=== PATIENT | female | born 1960 | race Caucasian/White ===

== ENCOUNTER → 2018-05-01 09:43 | Outpatient (CLI) | payer OTHER, SELFPAY ==
--- NOTE | 2018-05-01 09:55 | MM_ITS ---
MM Dig screening mamm BI w/CAD CAD Screening COMPARISON: Digital mammograms with CAD 10/13/2016 INDICATION: There is no personal or family history of breast cancer TECHNIQUE: Standard CC and MLO images were obtained. R2 CAD reviewed. FINDINGS: The breasts are composed primarily of fat with minimal scattered fibro glandular densities in each breast. There is no suspicious lesion in either breast and there are no suspicious microcalcifications. IMPRESSION: Fatty type breast parenchyma no suspicious lesion seen BI-RADS Category: 1 Negative RECOMMENDED FOLLOW-UP: 1YR - 1 YEAR FOLLOW-UP (A letter has been sent to the patient regarding results of the study.)
== END ==
PROVIDERS: Family Provider Internal Medicine; PCP Family Medicine; Visit Provider Internal Medicine
DX: Z12.31 Encounter for screening mammogram for malignant neoplasm of breast (principal)
CPT/HCPCS: 77067

== ENCOUNTER 2018-05-14 12:50 | Observation (INO) ==
--- NOTE | 2018-05-14 12:52 | Emergency Department Note ---
ED Disposition Clinical Impression: Chest pain Qualifiers: Chest pain type: precordial pain Qualified Code(s): R07.2 - Precordial pain Disposition: Still a Patient Condition on Discharge: Good - Critical Care Critical Care Time: No Attestation: On , the high probability of a clinically significant, sudden or life threatening deterioration of the following system(s) required my full and direct attention, intervention and personal management. The time I documented below is in addition to time spent performing reported procedures but includes the following listed in this critical care notation. Medical Decision Making - Jayy Inquiry Pt receiving controlled substance: No Vital Signs: 05/14/18 12:51 05/14/18 12:58 05/14/18 13:50 Temperature 98.0 F Temperature Source Oral Pulse Rate [Right Brachial] 89 88 84 Respiratory Rate 18 Blood Pressure [Right Arm] 158/68 158/68 146/74 Blood Pressure Mean [Right Arm] 98 98 98 Blood Pressure Source [Right Arm] Automatic Cuff Automatic Cuff Automatic Cuff Blood Pressure Position [Right Arm] Sitting Sitting Sitting 02 Sat by Pulse Oximetry 97 95 98 Oxygen Delivery Method Room Air 05/14/18 14:30 Temperature Temperature Source Pulse Rate [Right Brachial] 88 Respiratory Rate Blood Pressure [Right Arm] 147/79 Blood Pressure Mean [Right Arm] 101 Blood Pressure Source [Right Arm] Automatic Cuff Blood Pressure Position [Right Arm] Sitting 02 Sat by Pulse Oximetry 98 Oxygen Delivery Method - Lab Data Lab Results 05/14/18 12:55: WBC 9.3, RBC 4.64, Hgb 14.1, Hct 41.2, MCV 88.6, MCH 30.4, MCHC 34.3, RDW 13.1, Plt Count 200, MPV 8.3, Neut % (Auto) 60.0, Lymph % (Auto) 29.5 , [place] % (Auto) 7.6, Eos % (Auto) 2.3, Baso % (Auto) 0.5, Neut # (Auto) 5.6, Lymph # (Auto) 2.8, [place] # (Auto) 0.7, Eos # (Auto) 0.2, Baso # (Auto) 0.1 05/14/18 12:55: Sodium 140, Potassium 4.0, Chloride 104, Carbon Dioxide 29, Anion Gap 11.0, BUN 15, Creatinine 1.18 H, Estimated Creat Clear 50, Estimated GFR 48 L, Est GFR ( Amer) 58 L, Glucose 95, Calcium 9.3, Troponin I < 0.02 Result diagrams: 05/14/18 12:55 05/14/18 12:55 Orders (Tests/Meds): ED MEDICATIONS Generic Name Dose Route Start Last Admin Trade Name Freq PRN Reason Stop Dose Admin Aspirin 325 mg 05/15/18 09:00 Aspirin Ec 325mg Tablet PO 06/14/18 08:59 DAILY AMBER Discontinued Medications Generic Name Dose Route Start Last Admin Trade Name Freq PRN Reason Stop Dose Admin Aspirin 324 mg 05/14/18 12:59 05/14/18 13:01 Aspirin 81mg Chewable Tablet PO 05/14/18 13:00 324 mg ONCE ONE Administration - Radiology Data #1 Image(s): Chest Image Reviewed: No I have reviewed radiologist's interpretation Cardiomegaly - ECG Data Tracing #1 EKG interpreted by Matthew Wang MD: Rhythm: sinus Rate: 90 [place]: normal Ectopy: none Conduction: normal ST Segment Changes: none T Wave Changes: none Q Waves: none Poor R-wave progression - Physician Consults Physician Consulted: Dr. Anna's nurse (PCP at [facility]) Time: 14:06 Reason -: Pt condition Comment/Response: Patient has echo scheduled for 06/04/18. Does not have a stress test ordered. Discussed patient's symptoms. Discussed disposition. We have concluded it would be best to transfer the patient to the [facility] for workup. Patient is agreeable. Additional Consult: Lisandro Time: 14:35 Reason -: Admission Comment/Response: Agrees to admit the patient to the hospital. We discussed the patient's clinical information, including history, exam, laboratory and radiology results and ED course. Per hospital procedure, I will write temporary bridge inpatient orders on the patient. Specific orders requested by the admitting physician: Serial cardiac enzymes. He will arrange stress test for the morning. General Adult HPI - General Stated complaint: chest pain Time Seen by Provider: 05/14/18 13:10 - History of Present Illness HPI narrative: Patient is a vague historian. States she drove herself to the emergency room today at the insistence of her monitor on her bus. She works as a marketing business analyst. She relates that she has been having episodes of discomfort generally associated with physical activity since March. She says she saw her primary care doctor, Dr. Rm, at the [facility] in March for an episode of chest discomfort in general feeling of malaise. She says that she had an EKG and blood work. She says that her doctor wanted to do a stress test but when she saw the results of her EKG decided to do an echocardiogram, which she has not yet had. She says it is scheduled. She did not have an angiogram or cardiac cath. She does not have known heart disease. She does not have hypertension, hyperlipidemia, or diabetes. Non-smoker. She says family history of heart disease in her parents, but only at a late age. She says that she gets an aching or discomfort in her chest centrally and left- sided. Slight shortness of breath. No nausea. States she is always diaphoretic, no change with the pain. Had onset of the same symptoms this morning at about 5:30 AM and it is been continuing ever since. Had some radiation into her neck and arm today. Currently rates discomfort 2-3/10. Also complains of swelling of her legs for several weeks, worse with hot weather. - Related Data Home Medications Medication Instructions Recorded Confirmed No Known Home Medications 05/14/18 05/14/18 Allergies Allergy/AdvReac Type Severity Reaction Status Date / Time Penicillin Allergy Unknown I-RASH Uncoded 09/04/17 15:00 [facility] History I have reviewed the patient's past medical history: Yes ROS Obtained: Yes All systems reviewed & no additional complaints - Constitutional Constitutional: Reports fatigue, Denies fever(s), Reports malaise - Cardiovascular Cardiovascular: Reports chest pain, Reports chest pain with activity, Reports edema - Respiratory Respiratory: Yes dyspnea, Yes dyspnea on exertion - Gastrointestinal Gastrointestingal: Denies: nausea, vomiting Physical Exam - General General appearance: alert, in no apparent distress - Head Head exam: atraumatic, normocephalic, normal inspection - Eye Eye exam: Present: normal appearance, PERRL, EOMI - ENT ENT exam: Present: normal exam, normal oropharynx, mucous membranes moist, TM's normal bilaterally, normal external ear exam - Neck Neck exam: Present: normal inspection, full ROM, trachea midline. Absent: meningismus, lymphadenopathy - Chest Chest inspection: Present: normal inspection, symmetric chest wall rise. Absent : tenderness - Respiratory Respiratory exam: Present: normal lung sounds bilaterally. Absent: respiratory distress - Cardiovascular Cardiovascular exam: Present: regular rate, normal rhythm. Absent: JVD - Abdominal Exam Abdominal exam: Present: soft, normal bowel sounds. Absent: distention, tenderness, guarding - Extremities Exam Extremities exam: Present: normal inspection, full ROM, normal capillary refill , pedal edema (1-2+ pedal and pretibial edema). Absent: calf tenderness - Back Exam Back exam: Present: normal inspection. Absent: tenderness - Neurological Exam Neurological exam: Present: alert, oriented X3 - Psychiatric Psychiatric exam: Present: normal affect, normal mood - Skin Skin exam: Present: warm, dry, intact, normal color
[2018-05-14 13:14] LABS: Basophils # 0.1 K/mm3 (0-0.2); Basophils % 0.5 % (0.1-2.0); Eosinophils # 0.2 K/mm3 (0.0-0.4); Eosinophils % 2.3 % (0.1-12.0); Hematocrit 41.2 % (37.0-47.0); Hemoglobin 14.1 g/dL (12.2-16.2); Lymphocytes # 2.8 K/mm3 (0.7-4.5); Lymphocytes % 29.5 K/mm3 (10-50); Mean Corpuscular HGB Conc 34.3 g/dL (31.8-35.4); Mean Corpuscular Hemoglobin 30.4 pg (27.0-31.2); Mean Corpuscular Volume 88.6 fl (81-99); Mean Platelet Volume 8.3 fl (7.4-10.4); Monocytes # 0.7 K/mm3 (0.1-1.0); Monocytes % 7.6 % (1.7-9.3); Neutrophils # 5.6 K/mm3 (1.8-7.8); Platelet Count 200 K/mm3 (142-424); Red Blood Count 4.64 M/mm3 (4.20-5.40); Red Cell Distribution Width 13.1 % (11.5-17.5); White Blood Count 9.3 K/mm3 (4.8-10.8)
[2018-05-14 13:36] LABS: Blood Urea Nitrogen 15 mg/dL (7-18); Calcium 9.3 mg/dL (8.5-10.1); Carbon Dioxide 29 mmol/L (21.0-32.0); Chloride 104 mmol/L (98-107); Glucose 95 mg/dL (74-106); Sodium 140 mmol/L (136-145)
--- NOTE | 2018-05-14 16:46 | History & Physical Report ---
*Admission Date: 05/14/18 *Chief complaint: Left-sided chest discomfort *History of present illness: 57-year-old female presented to the emergency department today after awakening this morning with left-sided chest discomfort that worsened as the morning went on. Patient was convinced by coworker to seek treatment in the emergency department. Patient reported recurrent episodes of left-sided chest discomfort that does worsen with activity and is somewhat alleviated by rest that have been occurring for the last month. She will develop mild shortness of breath with these episodes. Her normal primary care physician is associated with the [facility] and patient had seen that doctor recently. An echocardiogram had been scheduled for mid May. The patient has become increasingly concerned with these episodes and has sought treatment earlier. She does not have hypertension, diabetes, known hypercholesterolemia. She is not a smoker. Patient is morbidly obese. She admits to constant diaphoresis. She denies any change in activity. She denies heartburn. She admits to poor quality sleep. She snores. She can fall asleep during the day if she is stationary. [facility] History I have reviewed the patient's past medical history: Yes Medical History: Denies:: Cancer, Diabetes Mellitus Type 1, Diabetes Mellitus Type 2, Internal Pacemaker, MRSA Laterality Cases: Left: Arthroscopy Knee Other Surgeries: No: Pacemaker Amputation: No Fractures: No - *Social History Educational Level: Attended College Smoking Status: Never smoker Alcohol Intake: current Alcohol Intake Frequency:: a few times a week Occupational Status: employed Housing: house Household Members: children - Psychiatric History Expresses thoughts of harming self/others: None Suicide Plan Description: No Plan *Family Hx:: Cancer, Diabetes, Stroke Review of Systems - Review of Systems Review of systems:: pertinent systems reviewed and negative unless documented below - Constitutional Reports fatigue, Denies chills, Denies fever(s) Meds Home Medications Medication Instructions Recorded Confirmed Type Diclofenac Sodium [Voltaren 100gm 1 applic TOPICAL DAILY PRN 05/14/18 05/14/18 History Topical Gel] Furosemide [Furosemide 20mg Tab] 20 mg PO DAILY 05/14/18 05/14/18 History Ibuprofen [Ibuprofen Ib] 200 mg PO TID PRN 05/14/18 05/14/18 History Allergies Allergy/AdvReac Type Severity Reaction Status Date / Time Penicillins Allergy Rash Verified 05/14/18 15:12 Exam Vital signs and Labs for Last 24 Hours: Temp Pulse Resp BP Pulse Ox 98.0 F 88 18 140/78 97 05/14/18 15:47 05/14/18 15:47 05/14/18 15:47 05/14/18 15:47 05/14/18 16:31 Laboratory Results - last 24 hr 05/14/18 12:55: WBC 9.3, RBC 4.64, Hgb 14.1, Hct 41.2, MCV 88.6, MCH 30.4, MCHC 34.3, RDW 13.1, Plt Count 200, MPV 8.3, Neut % (Auto) 60.0, Lymph % (Auto) 29.5 , [place] % (Auto) 7.6, Eos % (Auto) 2.3, Baso % (Auto) 0.5, Neut # (Auto) 5.6, Lymph # (Auto) 2.8, [place] # (Auto) 0.7, Eos # (Auto) 0.2, Baso # (Auto) 0.1 05/14/18 12:55: Sodium 140, Potassium 4.0, Chloride 104, Carbon Dioxide 29, Anion Gap 11.0, BUN 15, Creatinine 1.18 H, Estimated Creat Clear 50, Estimated GFR 48 L, Est GFR ( Amer) 58 L, Glucose 95, Calcium 9.3, Troponin I < 0.02 I & O for Last 24 hours: Intake & Output 05/12/18 05/13/18 05/14/18 05/15/18 11:59 11:59 11:59 11:59 Weight 278 lb 15.99 oz Narrative: Patient is resting comfortably in bed. She is oriented to person place and time. She does not appear to be in any pain. HEENT exam is grossly normal. Neck is without carotid bruits or lymphadenopathy. Lungs are clear to auscultation bilaterally. Heart has a regular rate and rhythm. Abdomen is obese, soft, nontender, nondistended. Patient has active range of motion in all extremities. There is no motor or sensory deficit. On musculoskeletal exam she has tenderness at the left fifth costochondral junction as well as discomfort over the left bicep tendon with palpation that extends distally to the proximal bicep. Assessment and Plan (1) Chest pain Current visit: Yes Status: Acute Qualifiers: Chest pain type: precordial pain Qualified Code(s): R07.2 - Precordial pain Category: Medical Code(s): R07.9 - Chest pain, unspecified - Assessment and plan all Dx Assessment and Plan for all problems:: 1. Rule out MA tonight with serial enzymes 2. As long as patient ruled out for MA she will have echocardiogram and stress test in the morning. If serial enzymes rule in patient for MA she will need cardiology consultation and heart cath.
--- NOTE | 2018-05-15 06:59 | Progress Note ---
Internal Medicine - PN: Subj *Date: 05/15/18 *Time: 06:57 Interval history: Patient did well overnight. She ruled out for HI with serial troponins. BNP was also negative. She reports that she continued to have mild discomfort in the left pectoral and anterior shoulder region. This was not associated with activity overnight. She remained in sinus rhythm on telemetry. She also reports this morning that she was scheduled for an MRI of the pancreas due to hyperinsulinemia detected [facility] Exam Vital signs and Labs for Last 24 Hours: Temp Pulse Resp BP Pulse Ox 97.6 F 86 16 139/76 96 05/15/18 04:00 05/15/18 04:00 05/15/18 04:00 05/15/18 04:00 05/15/18 04:00 Laboratory Results - last 24 hr 05/14/18 12:55: WBC 9.3, RBC 4.64, Hgb 14.1, Hct 41.2, MCV 88.6, MCH 30.4, MCHC 34.3, RDW 13.1, Plt Count 200, MPV 8.3, Neut % (Auto) 60.0, Lymph % (Auto) 29.5, [place] % (Auto) 7.6, Eos % (Auto) 2.3, Baso % (Auto) 0.5, Neut # (Auto) 5.6, Lymph # (Auto) 2.8, [place] # (Auto) 0.7, Eos # (Auto) 0.2, Baso # (Auto) 0.1 05/14/18 12:55: Sodium 140, Potassium 4.0, Chloride 104, Carbon Dioxide 29, Anion Gap 11.0, BUN 15, Creatinine 1.18 H, Estimated Creat Clear 50, Estimated GFR 48 L, Est GFR ( Amer) 58 L, Glucose 95, Calcium 9.3, Troponin I < 0.02 05/14/18 12:55: B-Natriuretic Peptide 16 05/14/18 12:55: Triglycerides 172, Cholesterol 211 H, LDL Cholesterol 124, VLDL Cholesterol 34, HDL Cholesterol 53, Cholesterol/HDL Ratio 4.0 H 05/14/18 16:03: Troponin I < 0.02 05/14/18 19:33: Troponin I < 0.02 I & O for Last 24 hours: Intake & Output 05/12/18 05/13/18 05/14/18 08/29/18 11:59 11:59 11:59 11:59 Intake Total 360 / 360 Balance 360 / 360 Weight 278 lb 15.99 oz Narrative: She is resting comfortably. Lungs are clear to auscultation. Heart has a regular rate and rhythm. Assessment and Plan (1) Chest pain Current visit: Yes Status: Acute Qualifiers: Chest pain type: precordial pain Qualified Code(s): R07.2 - Precordial pain Category: Medical Code(s): R07.9 - Chest pain, unspecified (2) Morbid obesity due to excess calories Current visit: Yes Status: Acute Category: Medical Code(s): E66.01 - Morbid (severe) obesity due to excess calories (3) Hyperinsulinemia Current visit: Yes Status: Acute Category: Medical Code(s): E16.1 - Other hypoglycemia - Assessment and plan all Dx Assessment and Plan for all problems:: 1. Patient will have stress test and echocardiogram today.
--- NOTE | 2018-05-15 07:01 | Discharge Summary ---
General - General Admission date:: 05/14/18 Discharge date: 05/15/18 HPI HPI: 57-year-old female presented to the emergency department today after awakening this morning with left-sided chest discomfort that worsened as the morning went on. Patient was convinced by coworker to seek treatment in the emergency department. Patient reported recurrent episodes of left-sided chest discomfort that does worsen with activity and is somewhat alleviated by rest that have been occurring for the last month. She will develop mild shortness of breath with these episodes. Her normal primary care physician is associated with the [facility] and patient had seen that doctor recently. An echocardiogram had been scheduled for mid May. The patient has become increasingly concerned with these episodes and has sought treatment earlier. She does not have hypertension, diabetes, known hypercholesterolemia. She is not a smoker. Patient is morbidly obese. She admits to constant diaphoresis. She denies any change in activity. She denies heartburn. She admits to poor quality sleep. She snores. She can fall asleep during the day if she is stationary. Hospital Course Hospital Course: Patient ruled out for MS with serial troponins. On 05/15 she underwent stress testing which was interpreted as no evidence of ischemia. She was discharged home and will follow up with her physician at the [facility] Objective Vital signs: Temp Pulse Resp BP Pulse Ox 97.6 F 86 16 139/76 96 05/15/18 04:00 05/15/18 04:00 05/15/18 04:00 05/15/18 04:00 05/15/18 04:00 Results Labs on day of discharge: Labs from last 24 hours 05/14/18 05/14/18 05/14/18 19:33 16:03 12:55 WBC RBC Hgb Hct MCV MCH MCHC RDW Plt Count MPV Neut % (Auto) Lymph % (Auto) [place] % (Auto) Eos % (Auto) Baso % (Auto) Neut # (Auto) Lymph # (Auto) [place] # (Auto) Eos # (Auto) Baso # (Auto) Sodium Potassium Chloride Carbon Dioxide Anion Gap BUN Creatinine Estimated Creat Clear Estimated GFR Est GFR ( Amer) Glucose Calcium Troponin I < 0.02 < 0.02 B-Natriuretic Peptide Triglycerides 172 Cholesterol 211 H LDL Cholesterol 124 VLDL Cholesterol 34 HDL Cholesterol 53 Cholesterol/HDL Ratio 4.0 H 05/14/18 05/14/18 05/14/18 12:55 12:55 12:55 WBC 9.3 RBC 4.64 Hgb 14.1 Hct 41.2 MCV 88.6 MCH 30.4 MCHC 34.3 RDW 13.1 Plt Count 200 MPV 8.3 Neut % (Auto) 60.0 Lymph % (Auto) 29.5 [place] % (Auto) 7.6 Eos % (Auto) 2.3 Baso % (Auto) 0.5 Neut # (Auto) 5.6 Lymph # (Auto) 2.8 [place] # (Auto) 0.7 Eos # (Auto) 0.2 Baso # (Auto) 0.1 Sodium 140 Potassium 4.0 Chloride 104 Carbon Dioxide 29 Anion Gap 11.0 BUN 15 Creatinine 1.18 H Estimated Creat Clear 50 Estimated GFR 48 L Est GFR ( Amer) 58 L Glucose 95 Calcium 9.3 Troponin I < 0.02 B-Natriuretic Peptide 16 Triglycerides Cholesterol LDL Cholesterol VLDL Cholesterol HDL Cholesterol Cholesterol/HDL Ratio DS: Diagnosis - Discharge Diagnosis (1) Chest pain Status: Acute (2) Morbid obesity due to excess calories Status: Acute (3) Hyperinsulinemia Status: Acute Discharge Plan - Patient Discharge Instructions ACTIVITY: Continue current activity DIET: continue same diet Patient Instructions: DI for Chest Pain Forms: [facility] Work Release - Follow up Plan Follow up with: Sujey Anna [Family Provider] - Disposition: Home, Self-Fpc Medications: Home Medications Medication Instructions Recorded Confirmed Type RX: Diclofenac Sodium [Voltaren 1 applic TOPICAL DAILY PRN 05/14/18 05/14/18 History 100gm Topical Gel] RX: Furosemide [Furosemide 20mg 20 mg PO DAILY 05/14/18 05/14/18 History Tab] RX: Ibuprofen [Ibuprofen Ib] 200 mg PO TID PRN 05/14/18 05/14/18 History Prescriptions/Medication Reconciliation: Continue RX: Ibuprofen [Ibuprofen Ib] 200 mg PO TID PRN PRN Reason: pain RX: Diclofenac Sodium [Voltaren 100gm Topical Gel] 1 applic TOPICAL DAILY PRN PRN Reason: pain RX: Furosemide [Furosemide 20mg Tab] 20 mg PO DAILY
--- NOTE | 2018-05-15 07:25 | Pharmacy Consult Notes ---
[facility] Pharmacy VTE Monitoring - Patient Demographics Admission date: 05/14/18 Report Date: 05/15/18 Time: 07:25 Allergies/Adverse Reactions: Patient Allergies Penicillins Allergy (Verified 05/14/18 15:12) Rash Height: 1.68 m Weight: 126.552 kg Patient Problems: Current Active Problems Chest pain (Acute) Morbid obesity due to excess calories (Acute) Hyperinsulinemia (Acute) - VTE Risk Labs: VTE Related Lab Results Hgb 14.1 g/dL (12.2-16.2) 05/14/18 12:55 Hct 41.2 % (37.0-47.0) 05/14/18 12:55 Plt Count 200 K/mm3 (142-424) 05/14/18 12:55 BUN 15 mg/dL (7-18) 05/14/18 12:55 Creatinine 1.18 mg/dL (0.55-1.02) H 05/14/18 12:55 Estimated Creat Clear 50 mL/min (0-300) 05/14/18 12:55 Was VTE Risk Assessment Performed: Yes VTE Score: 2 Clinical Trial Participant: No - Prophylaxis VTE Prophylaxis Ordered?: Yes Types of VTE Prophylaxis: TEDS Knee High
--- NOTE | 2018-05-16 17:01 | Cardiology Report ---
PROCEDURE: 2-D M-mode and color Doppler study INDICATIONS FOR THE TEST: Chest pain + COPD Heart Murmur Tobacco Smoking Palpitations Fatigue Syncope Edema Hypertension Diabetes Mellitus Rheumatic Fever SOB+NORRIS Obesity+Hyperlipidemia Family History HD Additional History PATIENT INFORMATION HEIGHT: 66 WEIGHT:279 GENDER: Female B/P:140/78 2-D/M-MODE INTERPRETATION: 2-D MEASUREMENTS OBSERVED VALUES IN CMS Right Ventricular Dimension (RVDd) 2.4 Interventricular Septum (Thickness)(IVsd) 1.0 Left Ventricular Internal Dimensions(LVIDd) 4.1 Left Ventricular Posterior Wall (Thickness)(LVPWd) 1.0 Aortic Root 3.1 Aortic Cusp Separation 2.0 Left Atrial Dimensions (LAD) 3.2 2D 1. Left atrium is normal size, left ventricle is normal size, left ventricle wall thickness is upper limit of the normal, there is preserved left ventricular systolic function, visually estimated ejection fraction 55% with no obvious regional wall motion abnormality. 2. The right atrium and right ventricle are relatively normal size and function. 3. The aortic valve is minimally thickened and fibrosed. 4. The mitral and tricuspid valve are grossly normal. 5. The pulmonic valve is poorly visualized. 6. No significant pericardial effusion noted. DOPPLER INTERROGATION: Doppler interrogation of the aortic, mitral and tricuspid valve reveals presence of mild mitral and tricuspid regurgitation, tricuspid regurgitation jet velocity is insufficient for calculation of the right ventricular systolic pressure, diastolic parameters are within normal range. CONCLUSION: 1. Normal left ventricular size, preserved left ventricular systolic function, visually estimated ejection fraction of 55% with no obvious regional wall motion abnormality, diastolic parameters are within normal range. 2. Mild mitral and tricuspid regurgitation 3. No significant pericardial effusion noted.
== END 2018-05-15 15:13 | disposition home or self-care (01) ==
LOC: 2ND 12:50 → ER 12:50 → 2ND 14:42
PROVIDERS: ADMIT Family Medicine; ATTEND Family Medicine

== ENCOUNTER → 2018-06-07 09:07 | Outpatient (CLI) | payer OTHER, SELFPAY ==
[2018-06-07 09:42] LABS: Blood Urea Nitrogen 14 mg/dL (7-18); Creatinine,Serum 0.86 mg/dL (0.55-1.02); Estimated Glomerular Filt Rate 69 ml/min (>60); GFR (African American) 83 ML/MIN (>60)
== END ==
PROVIDERS: Family Provider Internal Medicine; PCP Family Medicine; Visit Provider Internal Medicine
DX: E16.2 Hypoglycemia, unspecified (principal); R73.09 Other abnormal glucose
CPT/HCPCS: 36415; 82565; 84520

== ENCOUNTER → 2018-06-10 10:48 | Outpatient (CLI) | payer OTHER, SELFPAY ==
--- NOTE | 2018-06-10 10:55 | MR_ITS ---
MR abdomen wo/w con . 3-D MRCP included Ordering Physician: Sujey Anna Patient Age: 57 years: Female HISTORY: ITS.REASON: INSULIN INSULINOMIA Patient feels weak shaking sugars dropped rapidly. Patient is not a diabetic. Lateral show the patient has too much insulin and body. Evaluate for possible insulinoma TECHNIQUE: Multiplanar multisequence MRI pre and postcontrast. 20 mL ProHance used for the postcontrast imaging with dynamic axial scanning performed and subsequent coronal image postcontrast as well. 3-D MRCP was performed on the MRI independent workstation 76 CPT COMPARISON :None FINDINGS The Common duct appears normal diameter. Normal anatomy on both MRCP images as well as the coronal, axial images. No pancreatic mass is identified. The postcontrast image set shows no enhancing lesions. No mass lesion. No pancreatic ductal dilatation. Subsequent delayed postcontrast Coronal image set showed no abnormalities at the pancreas. The liver, spleen appear normal. Adrenals unremarkable. Kidneys unremarkable. Gallbladder. Difficult to exclude some small stones/or sludge and neck of gallbladder. Suggest gallbladder ultrasound particularly if symptoms No retroperitoneal or peripancreatic adenopathy no gross findings at lung bases IMPRESSION: Pancreas appears normal. No abnormal areas of enhancement. No mass or nodule evident The solid organs here at the abdomen appear normal. Unremarkable. The common duct and biliary tree appears normal on MRCP Gallbladder. Cannot totally exclude some tiny gallstones or sludge and neck of gallbladder
== END ==
PROVIDERS: Family Provider Internal Medicine; PCP Family Medicine; Visit Provider Internal Medicine
DX: E16.1 Other hypoglycemia (principal)
CPT/HCPCS: 74183; A9576

== ENCOUNTER → 2019-06-03 12:28 | Outpatient (CLI) | payer OTHER, SELFPAY ==
--- NOTE | 2019-06-03 12:37 | XR_ITS ---
PROCEDURE: XR KNEE LT 4V CLINICAL INDICATION: left knee pain COMPARISON: No exams were available for comparison FINDINGS: Moderate osteoarthritic changes are present involving the left knee greater at the lateral compartment and patellofemoral joint. No fracture or dislocation. Loose bodies are noted in the popliteal fossa region. Other findings:None. IMPRESSION: Moderate osteoarthritis with loose intra-articular bodies in the popliteal fossa Dictated by: Liban Shepard MD 06/03/2019 16:14 Electronically signed by Liban Shepard MD in [place] 06/03/2019 16:14
--- NOTE | 2019-06-03 12:37 | XR_ITS ---
PROCEDURE: XR KNEE RT 4V CLINICAL INDICATION: right knee pain Pain with limited range of motion COMPARISON: No exams were available for comparison FINDINGS: There are moderate to severe osteoarthritic changes involving all 3 compartments greatest at the lateral compartment and patellofemoral joint with loss of joint space and osteophyte formation. There is mild lateral angulation of the distal tibia. No fracture or dislocation evident. IMPRESSION: Moderate to severe osteoarthritis of the right knee Dictated by: Liban Shepard MD 06/03/2019 16:13 Electronically signed by Liban Shepard MD in [place] 06/03/2019 16:13
== END ==
PROVIDERS: PCP Internal Medicine; Visit Provider Orthopaedic Surgery
DX: M25.562 Pain in left knee (principal); M25.561 Pain in right knee
CPT/HCPCS: 73564

== ENCOUNTER → 2019-06-09 13:11 | Outpatient (CLI) | payer OTHER, SELFPAY ==
--- NOTE | 2019-06-09 13:22 | US_ITS ---
PROCEDURE: US TRANSVAGINAL CLINICAL INDICATION: ECXCESSIVE BLEEDING COMPARISON: No exams were available for comparison FINDINGS: UTERUS: Unremarkable the uterus measures 7 x 4 x 6 cm. Combined endometrial thickness is 4 mm. RIGHT OVARY: Measures 2.5 x 2.2 cm LEFT OVARY: Measures 2.6 x 1.9 cm CUL-DE-SAC FLUID: No cul-de-sac fluid apparent OTHER FINDINGS: IMPRESSION: Unremarkable pelvic ultrasound Dictated by: Liban Shepard MD 06/09/2019 17:20 Electronically signed by Liban Shepard MD in [place] 06/09/2019 17:20
== END ==
PROVIDERS: PCP Internal Medicine; Visit Provider Internal Medicine
DX: N93.8 Other specified abnormal uterine and vaginal bleeding (principal)
CPT/HCPCS: 76830

== ENCOUNTER → 2020-02-11 10:21 | Outpatient (CLI) | payer OTHER, SELFPAY ==
--- NOTE | 2020-02-11 10:23 | MM_ITS ---
PROCEDURE: MM DIG SCREENING MAMM BI W/CAD Digital Breast Tomosynthesis Included CLINICAL INDICATION: SCREENING There is no personal or family history of breast cancer. COMPARISON: [facility] DIG MAMM-SCREEN CHRIS W/CAD from 10/13/2016 [facility] MM Dig screening mamm BI w/CAD from 05/01/2018 TECHNIQUE: Standard CC and MLO images and 3D Tomosynthesis was obtained. R2 CAD reviewed. FINDINGS: Mild diffuse fibroglandular densities are seen throughout both breast. The findings are fairly symmetrical bilaterally. Rakan images were reviewed. There is no suspicious lesion in either breast and no suspicious microcalcifications. IMPRESSION: Stable exam with fibrofatty parenchyma and no suspicious lesions seen BI-RAD Category: 1 Negative FOLLOW-UP: 1YR 1 Year Follow-up (A letter has been sent to the patient regarding results of the study.) Dictated by: Dr. Abhi Mascorro MD 02/13/2020 07:[address] Abhi Mascorro MD in [place] 02/13/2020 07:41
== END ==
PROVIDERS: PCP Internal Medicine; Visit Provider Internal Medicine
DX: Z12.31 Encounter for screening mammogram for malignant neoplasm of breast (principal)
CPT/HCPCS: 77063; 77067

== ENCOUNTER → 2021-06-09 16:48 | Outpatient (CLI) | payer OTHER, SELFPAY | PROVIDERS: PCP Family Medicine; Visit Provider Nurse Practitioner | DX: Z20.822 Contact with and (suspected) exposure to COVID-19 (principal) | CPT/HCPCS: C9803; U0003; U0005 ==

== ENCOUNTER → 2021-06-16 13:16 | Outpatient (CLI) | payer BC, SELFPAY | PROVIDERS: PCP Family Medicine; Visit Provider Family Medicine | DX: G47.30 Sleep apnea, unspecified (principal); R40.0 Somnolence; E66.9 Obesity, unspecified; Z68.41 Body mass index [BMI] 40.0-44.9, adult | CPT/HCPCS: G0399 ==

== ENCOUNTER 2021-11-25 06:05 | Emergency (ER) | payer BC, OTHER, SELFPAY ==
[2021-11-25 06:07] VITALS: BP 156/83; PULSE 89; RESP 16; TEMP 36.7; O2SAT 97; BMI 42.7
[2021-11-25 06:21] VITALS: BP 156/83; PULSE 89; RESP 18; O2SAT 96
--- NOTE | 2021-11-25 06:24 | PC.NURSE ---
WOUNDS CLEANED WITH STERILE WATER AND HIBACLENS. PT TOLERATED WELL.
--- NOTE | 2021-11-25 06:31 | HMH.EDGENADL ---
ED Disposition Clinical Impression: Laceration Disposition: Home, Self-Care Condition on Discharge: Good Instructions: DI for Laceration Repair Additional Instructions: Take antibiotics as directed. Okay to shower, avoid soaking the area for prolonged periods for the first 48 hours. Return to ED with fevers, worsening redness, pain, bleeding. You will need to follow-up with your primary care physician, urgent care, or this ED in 7 to 10 days for suture removal. Put sunscreen over laceration/scar to minimize scarring. Prescriptions: Doxycycline Monohydrate 100 mg PO BID 10 Days #20 cap Transmission Status: Pending to [id number] Referrals: Adan Mcmahon MD [Primary Care Provider] - - Critical Care Critical Care Time: No Attestation: On 11/25/21, the high probability of a clinically significant, sudden or life threatening deterioration of the following system(s) required my full and direct attention, intervention and personal management. The time I documented below is in addition to time spent performing reported procedures but includes the following listed in this critical care notation. Medical Decision Making - Medical Records Medical records reviewed: Yes: I reviewed the patient's medical records. - Jayy Inquiry Pt receiving controlled substance: No Vital Signs: 11/25/21 06:07 Temperature 98.1 F Temperature Source Oral Pulse Rate [Left Radial] 89 Respiratory Rate 16 Blood Pressure [Right Arm] 156/83 H Blood Pressure Mean [Right Arm] 107 Blood Pressure Source [Right Arm] Automatic Cuff Blood Pressure Position [Right Arm] Sitting 02 Sat by Pulse Oximetry 97 Oxygen Delivery Method Room Air Orders (Tests/Meds): ED MEDICATIONS Discontinued Medications Generic Name Dose Route Start Last Admin Trade Name Freq PRN Reason Stop Dose Admin Tetanus/Diphtheria Toxoids 0.5 ml 11/25/21 06:30 Tetanus-Diphth Toxoid, Adult 0.5ml Syr IM 11/25/21 06:31 .ONCE ONE Medical Decision Narrative: 61-year-old female presented to the ED with a laceration after being scratched by her rooster. Differential diagnoses include laceration, cellulitis, contusion, musculoskeletal injury, puncture wound. Given this work-up include physical exam, laceration repair. Labs, imaging studies not currently dictated. Vital signs are stable. See procedure note. Laceration was irrigated with 1 L of normal saline, repaired with 4.0 nonabsorbable sutures with no complications. Her tetanus was updated. Will discharge with prophylactic antibiotics and 7-10 day follow-up for suture removal. General Adult HPI - General Chief complaint: Wound/Laceration Stated complaint: [id number] right leg injury Time Seen by Provider: 11/25/21 06:31 Mode of Arrival: Ambulatory Source of Information: Patient Limitations: No Limitations Description of Symptoms (Recalled from ER Triage Doc. by RN): PT WAS ATTACKED BY ROOSTER AND HAS SEVERAL PUNCTURE WOUNDS AND LACERATIONS. - History of Present Illness HPI narrative: 61-year-old female presenting to the ED with a wound to her right leg. Patient was outside roughly 45 minutes prior to arrival take care of her chickens when she was accidentally scratched by her rooster. She has a laceration over the lateral aspect of her lower right leg and a small puncture wound over the proximal lower right leg. She is unsure of her last tetanus shot. She does not have any other injuries. Patient did take Motrin prior to arrival. She has no other concerns. - Related Data Home Medications Medication Instructions Recorded Confirmed dextroamphetamine-amphetamine ER 30 mg PO DAILY 09/29/21 09/29/21 30 mg 24hr capsule,extend release sertraline 100 mg tablet 100 mg PO DAILY 09/29/21 09/29/21 Previous Rx's Medication Instructions Recorded Doxycycline Monohydrate 100 mg PO BID 10 Days #20 cap 11/25/21 Allergies Allergy/AdvReac Type Severity Reaction Status Date /
--- NOTE | 2021-11-25 06:46 | PC.NURSE ---
MD AT BEDSIDE TO SUTURE.
[2021-11-25 07:27] VITALS: BP 151/88; PULSE 81; RESP 17; TEMP 36.7; O2SAT 97
== END 2021-11-25 07:29 | disposition home or self-care (01) ==
PROVIDERS: Emergency Provider Emergency Medicine; PCP Family Medicine
DX: S81.811A Laceration without foreign body, right lower leg, initial encounter (principal); W61.32XA Struck by chicken, initial encounter; Y92.018 Other place in single-family (private) house as the place of occurrence of the external cause; Z23 Encounter for immunization
CPT/HCPCS: 12004; 99282

== ENCOUNTER 2021-12-03 17:11 | Emergency (ER) | payer BC, OTHER, SELFPAY ==
[2021-12-03 17:15] VITALS: BP 136/84; PULSE 82; RESP 18; TEMP 37.1; O2SAT 100; BMI 36.3
[2021-12-03 17:20] VITALS: BP 136/84; PULSE 82; RESP 18; TEMP 37.1; O2SAT 100
== END 2021-12-03 17:25 | disposition home or self-care (01) ==
LOC: UTC 17:16
PROVIDERS: Emergency Provider Nurse Practitioner; PCP Internal Medicine
DX: S81.811D Laceration without foreign body, right lower leg, subsequent encounter (principal)

== ENCOUNTER 2021-12-29 13:13 | Emergency (ER) | payer BC, OTHER, SELFPAY ==
[2021-12-29 13:33] VITALS: BP 157/89; PULSE 86; RESP 16; TEMP 36.8; O2SAT 99; BMI 42.7
--- NOTE | 2021-12-29 13:38 | HMH.EDUTC ---
[facility] [place] Disposition Clinical Impression: Laceration Disposition: Home, Self-Care Condition on Discharge: Good Instructions: DI for Open Laceration Additional Instructions: follow up with pcp 4 more days of antibiotics if worsens or does not improve return Prescriptions: clindamycin HCL [Clindamycin HCl] 300 mg PO TID 4 Days #12 cap Transmission Status: Pending to [id number] Referrals: Provider,Referral, [Primary Care Provider] - Time of Disposition: 13:49 Medical Decision Making - Jayy Inquiry Pt receiving controlled substance: No Vital Signs: 12/29/21 13:33 Temperature 98.3 F Temperature Source Oral Pulse Rate [Left] 86 Respiratory Rate 16 Blood Pressure [Right Arm] 157/89 H Blood Pressure Mean [Right Arm] 111 02 Sat by Pulse Oximetry 99 [facility] [place] HPI - General Chief complaint: Urgent Treatment Center Stated complaint: rt leg wound Time Seen by Provider: 12/29/21 13:38 Mode of Arrival: Ambulatory Source of Information: Patient Limitations: No Limitations Description of Symptoms (Recalled from Triage Doc. by RN): pt has a wound on her R lower leg from being attacked by a rooster on 11/25. pt states she is finishing her third round of antibiotics--clindo. the area is still red and oozing yellow drainage. HEENT Symptoms (Recalled from RN notes): No Resp Symptoms (Recalled from RN notes): No Skin Symptoms (Recalled from RN notes): Yes MS Symptoms (Recalled from RN notes): No Functional Status (Recalled from RN notes): wnl - History of Present Illness Provider Complaint: 61 yr old female presents wound on her R lower leg from being attacked by a rooster on 11/25. pt states she is finishing her third round of antibiotics--clindomyicin and the wound is still red and oozing yellow drainage but improved greatly - Related Data Home Medications Medication Instructions Recorded Confirmed dextroamphetamine-amphetamine ER 30 mg PO DAILY 09/29/21 09/29/21 30 mg 24hr capsule,extend release sertraline 100 mg tablet 100 mg PO DAILY 09/29/21 09/29/21 Previous Rx's Medication Instructions Recorded Doxycycline Monohydrate 100 mg PO BID 10 Days #20 cap 11/25/21 clindamycin HCL [Clindamycin HCl] 300 mg PO TID 4 Days #12 cap 12/29/21 Allergies Allergy/AdvReac Type Severity Reaction Status Date / Time Penicillins Allergy Rash Verified 09/29/21 11:03 - Worker's Comp Is this a Worker's Comp case?: No [facility] History - Hepatitis A Screen Drug use history?: No High risk sexual behaviors?: No History of sexually transmitted infection?: No Currently employed?: No Childcare worker?: No Do you have indoor plumbing?: Yes Do you have electricity?: Yes Attestation statement:: This patient has been screened for Hepatitis A risk factors. I have reviewed the patient's past medical history: Yes Medical History: Reports:: Depression, Diabetes Mellitus Type 2 Denies:: Cancer, Diabetes Mellitus Type 1, Hypertension, Internal Pacemaker, MRSA Other Medical History: Reports: Arthritis, Other Laterality Cases: Left: Arthroscopy Knee Other Surgeries: Yes: Cardiac Catheterization, Colonoscopy. No: Pacemaker Amputation: No Fractures: No - Social History Smoking Status: Never smoker Alcohol Intake: current Alcohol Intake Frequency:: a few times a week Substance Use Type: denies use Occupational Status: employed Housing: house Household Members: children - Psychiatric History Pschychiatric History:: Reports:: Depression Family Hx:: Cancer, Diabetes, Stroke ROS Obtained: Yes Systems reviewed as appropriate & no additional complaints - Constitutional Constitutional: Reports system reviewed and no additional complaints, except as docu, Denies fever(s) - Eyes Eyes: Reports system reviewed and no additional complaints, except as docu, Denies blurry vision - ENT Ears, Nose, Mouth, and Throat: Reports system reviewed and no additional complaints, except as docu, Denies sore throat - Cardi
[2021-12-29 13:53] VITALS: BP 157/89; PULSE 86; RESP 16; TEMP 36.8
== END 2021-12-29 13:55 | disposition home or self-care (01) ==
PROVIDERS: Emergency Provider Nurse Practitioner Family
DX: S81.811A Laceration without foreign body, right lower leg, initial encounter (principal); M19.90 Unspecified osteoarthritis, unspecified site; E11.9 Type 2 diabetes mellitus without complications; G47.33 Obstructive sleep apnea (adult) (pediatric); E66.01 Morbid (severe) obesity due to excess calories; F90.9 Attention-deficit hyperactivity disorder, unspecified type; F32.A Depression, unspecified; Z88.0 Allergy status to penicillin; Z82.49 Family history of ischemic heart disease and other diseases of the circulatory system; Z68.41 Body mass index [BMI] 40.0-44.9, adult; Z80.9 Family history of malignant neoplasm, unspecified; Z83.3 Family history of diabetes mellitus; W61.99XA Other contact with other birds, initial encounter
CPT/HCPCS: 99213; G0463

== ENCOUNTER 2022-03-13 17:05 | Emergency (ER) | payer BC, OTHER, SELFPAY ==
--- NOTE | 2022-03-13 17:49 | HMH.EDUTC ---
[facility] [place] Disposition Clinical Impression: Contact dermatitis Qualifiers: Contact dermatitis type: allergic Contact dermatitis trigger: non-food plants Qualified Code(s): L23.7 - Allergic contact dermatitis due to plants, except food Disposition: Home, Self-Care Condition on Discharge: Good Instructions: DI for Contact Dermatitis, DI for Poison Jolly Allergy, Methylprednisolone Injection Additional Instructions: Try to identify and avoid contact with the offending substance (poison jolly). Don't start the oral steroids until tomorrow. Don't put the topical steroids (triamcinolone) on your face or your groin. Follow up with your regular doctor. GO TO THE ER FOR ANY WORSENING SYMPTOMS OR CONCERNS Prescriptions: methylPREDNISolone [Medrol] 4 mg PO DIRECTED 6 Days #21 packet Transmission Status: Received by [facility] Triamcinolone Acetonide 1 applicatio TP TIDP PRN 7 Days #1 gm PRN Reason: Itching Transmission Status: Received by [facility] Referrals: Provider,Referral, [Primary Care Provider] - Time of Disposition: 17:57 Medical Decision Making - Medical Records Medical records reviewed: No: I reviewed the patient's medical records. - Jayy Inquiry Pt receiving controlled substance: No Vital Signs: 03/13/22 17:53 03/13/22 18:16 Temperature 97.7 F 97.7 F Temperature Source Oral Pulse Rate 98 H Pulse Rate [Left] 98 H Respiratory Rate 18 18 Blood Pressure 148/97 H Blood Pressure [Right Arm] 148/97 H Blood Pressure Mean [Right Arm] 114 02 Sat by Pulse Oximetry 96 Orders (Tests/Meds): ED MEDICATIONS Discontinued Medications Generic Name Dose Route Start Last Admin Trade Name Freq PRN Reason Stop Dose Admin Methylprednisolone Sodium Succinate 125 mg 03/13/22 17:56 03/13/22 18:11 Methylprednisolone Sod Succ 125mg Vial IM 03/13/22 17:57 125 mg ONCE ONE Administration [facility] [place] HPI - General Stated complaint: rash on both arms Time Seen by Provider: 03/13/22 17:49 - History of Present Illness Provider Complaint: She states that she has a poison jolly rash on both her arms and legs. She has been working outside in [place] and thinks she has came into contace with poison jolly. Her symptoms began about 4 days ago. She is now starting to have the rash appear on her face. - Related Data Home Medications Medication Instructions Recorded Confirmed dextroamphetamine-amphetamine ER 30 mg PO DAILY 09/29/21 09/29/21 30 mg 24hr capsule,extend release sertraline 100 mg tablet 100 mg PO DAILY 09/29/21 09/29/21 Previous Rx's Medication Instructions Recorded Doxycycline Monohydrate 100 mg PO BID 10 Days #20 cap 11/25/21 clindamycin HCL [Clindamycin HCl] 300 mg PO TID 4 Days #12 cap 12/29/21 Triamcinolone Acetonide 1 applicatio TP TIDP PRN 7 Days #1 03/13/22 gm methylPREDNISolone [Medrol] 4 mg PO DIRECTED 6 Days #21 03/13/22 packet Allergies Allergy/AdvReac Type Severity Reaction Status Date / Time Penicillins Allergy Rash Verified 03/13/22 17:55 [facility] History - Hepatitis A Screen Attestation statement:: This patient has been screened for Hepatitis A risk factors. I have reviewed the patient's past medical history: Yes Medical History: Reports:: Depression, Diabetes Mellitus Type 2 Denies:: Cancer, Diabetes Mellitus Type 1, Hypertension, Internal Pacemaker, MRSA Other Medical History: Reports: Arthritis, Other Laterality Cases: Left: Arthroscopy Knee Other Surgeries: Yes: Cardiac Catheterization, Colonoscopy. No: Pacemaker Amputation: No Fractures: No - Social History Smoking Status: Never smoker Alcohol Intake: current Alcohol Intake Frequency:: a few times a week Substance Use Type: denies use Occupational Status: employed Housing: house Household Members: children - Psychiatric History Pschychiatric History:: Reports:: Depression Family Hx:: Cancer, Diabetes, Stroke ROS Obtained: Yes All systems reviewed
[2022-03-13 17:53] VITALS: BP 148/97; PULSE 98; RESP 18; TEMP 36.5; O2SAT 96; BMI 43.5
[2022-03-13 18:16] VITALS: BP 148/97; PULSE 98; RESP 18; TEMP 36.5
== END 2022-03-13 18:24 | disposition home or self-care (01) ==
PROVIDERS: Emergency Provider Nurse Practitioner Family
DX: L23.7 Allergic contact dermatitis due to plants, except food (principal); Z88.0 Allergy status to penicillin
CPT/HCPCS: 99212; G0463

== ENCOUNTER 2022-03-17 12:45 | Emergency (ER) | payer BC, OTHER, SELFPAY ==
--- NOTE | 2022-03-17 13:01 | HMH.EDUTC ---
[facility] [place] Impression: Exposure to COVID-19 virus Disposition: Home, Self-Care Condition on Discharge: Good Instructions: DI for COVID-19 (Suspected or Confirmed ), Preventing the Spread of Coronavirus Discharge Instructions Additional Instructions: Drink plenty of fluids. Take tylenol for pain or fever. Return if you begin to have difficulty breathing. Follow up with your regular doctor. GO TO THE ER FOR ANY WORSENING SYMPTOMS Quarantine until you know the results of your covid-19 test. If it is positive, the health department should call you and give you further instructions about your length of Quarantine and other things. Notify your school or workplace of your results and follow their instructions regarding return to work/school. Referrals: Provider,Referral, [Primary Care Provider] - Time of Disposition: 13:04 Medical Decision Making - Medical Records Medical records reviewed: No: I reviewed the patient's medical records. - Jayy Inquiry Pt receiving controlled substance: No Vital Signs: 03/17/22 13:13 03/17/22 13:15 Temperature 97.8 F 97.8 F Temperature Source Oral Pulse Rate 83 Pulse Rate [Left] 83 Respiratory Rate 18 18 Blood Pressure 154/88 H Blood Pressure [Right Arm] 154/88 H Blood Pressure Mean [Right Arm] 110 02 Sat by Pulse Oximetry 96 - Lab Data Lab results reviewed: Yes: I reviewed the patient's lab results. [facility] [place] - General Stated complaint: covid test Time Seen by Provider: 03/17/22 13:01 - History of Present Illness Provider Complaint: She has been exposed to covid-19 and would like to be tested. - Related Data Home Medications Medication Instructions Recorded Confirmed dextroamphetamine-amphetamine ER 30 mg PO DAILY 09/29/21 09/29/21 30 mg 24hr capsule,extend release sertraline 100 mg tablet 100 mg PO DAILY 09/29/21 09/29/21 Previous Rx's Medication Instructions Recorded Doxycycline Monohydrate 100 mg PO BID 10 Days #20 cap 11/25/21 clindamycin HCL [Clindamycin HCl] 300 mg PO TID 4 Days #12 cap 12/29/21 Triamcinolone Acetonide 1 applicatio TP TIDP PRN 7 Days #1 03/13/22 gm methylPREDNISolone [Medrol] 4 mg PO DIRECTED 6 Days #21 03/13/22 packet Allergies Allergy/AdvReac Type Severity Reaction Status Date / Time Penicillins Allergy Rash Verified 03/13/22 17:55 [facility] History - Hepatitis A Screen Attestation statement:: This patient has been screened for Hepatitis A risk factors. I have reviewed the patient's past medical history: Yes Medical History: Reports:: Depression, Diabetes Mellitus Type 2 Denies:: Cancer, Diabetes Mellitus Type 1, Hypertension, Internal Pacemaker, MRSA Other Medical History: Reports: Arthritis, Other Laterality Cases: Left: Arthroscopy Knee Other Surgeries: Yes: Cardiac Catheterization, Colonoscopy. No: Pacemaker Amputation: No Fractures: No - Social History Smoking Status: Never smoker Alcohol Intake: current Alcohol Intake Frequency:: a few times a week Substance Use Type: denies use Occupational Status: employed Housing: house Household Members: children - Psychiatric History Pschychiatric History:: Reports:: Depression Family Hx:: Cancer, Diabetes, Stroke ROS Obtained: Yes All systems reviewed & no additional complaints - Constitutional Constitutional: Reports system reviewed and no additional complaints, except as docu, Denies chills, Denies fever(s) - Eyes Eyes: Denies eye discharge - ENT Ears, Nose, Mouth, and Throat: Reports system reviewed and no additional complaints, except as docu - Cardiovascular Cardiovascular: Reports system reviewed and no additional complaints, except as docu Physical Exam - General General appearance: alert, in no apparent distress - Head Head exam: atraumatic, normocephalic, normal inspection - Eye Eye exam: Present: normal appearance, PERRL, EOMI - ENT ENT exam: Present: normal exam, normal
[2022-03-17 13:13] VITALS: BP 154/88; PULSE 83; RESP 18; TEMP 36.6; O2SAT 96; BMI 45.1
[2022-03-17 13:15] VITALS: BP 154/88; PULSE 83; RESP 18; TEMP 36.6
== END 2022-03-17 13:16 | disposition home or self-care (01) ==
PROVIDERS: Emergency Provider Nurse Practitioner Family
DX: Z20.822 Contact with and (suspected) exposure to COVID-19 (principal)
CPT/HCPCS: 99212; C9803; G0463; U0003; U0005

== ENCOUNTER 2022-03-28 10:47 | Emergency (ER) | payer BC, OTHER, SELFPAY ==
[2022-03-28 11:42] VITALS: BP 0/0; PULSE 0; RESP 0; TEMP -17.7; TEMP 0
== END 2022-03-28 11:43 | disposition home or self-care (01) ==
LOC: UTC 10:48
PROVIDERS: Emergency Provider Nurse Practitioner Family; PCP Internal Medicine
DX: Z03.89 Encounter for observation for other suspected diseases and conditions ruled out (principal); G47.33 Obstructive sleep apnea (adult) (pediatric); E66.01 Morbid (severe) obesity due to excess calories; F90.9 Attention-deficit hyperactivity disorder, unspecified type; Z79.52 Long term (current) use of systemic steroids; Z88.0 Allergy status to penicillin; Z53.21 Procedure and treatment not carried out due to patient leaving prior to being seen by health care provider
CPT/HCPCS: 99211

== ENCOUNTER 2022-04-20 16:22 | Emergency (ER) | payer BC, OTHER, SELFPAY ==
--- NOTE | 2022-04-20 16:44 | XR_ITS ---
PROCEDURE INFORMATION: Exam: XR Chest Exam date and time: 04/20/2022 4:44 PM Age: 61 years old Clinical indication: Shortness of breath; Patient HX: Patient could not stand for x-ray. Done sitting in wheelchair. ; Additional info: SOB TECHNIQUE: Imaging protocol: Radiologic exam of the chest. Views: 2 views. COMPARISON: CR [id number] XR chest portable 05/14/2018 1:26 PM FINDINGS: Airway: Central airways patent. Lungs: Crowding of bronchovascular structures. Superimposition of soft tissues in the lung bases. Lungs clear. Pleural spaces: No pleural effusion or pneumothorax. Heart/Mediastinum: Mild cardiomegaly. Normal upper mediastinum. Vasculature: Calcified aortic knob. Bones/joints: No acute skeletal abnormality or aggressive osseous lesion. IMPRESSION: No acute thoracic pathology.
[2022-04-20 16:49] VITALS: BP 132/76; PULSE 93; RESP 18; TEMP 36.7; O2SAT 98; BMI 43.5
[2022-04-20 16:54] LABS: UTC Strep Screen (Rapid) Negative (Negative)
--- NOTE | 2022-04-20 16:55 | HMH.EDUTC ---
[facility] [place] Disposition Clinical Impression: Shortness of breath Disposition: Still a Patient Condition on Discharge: Fair Referrals: Provider,Referral, [Primary Care Provider] - Time of Disposition: 17:49 Medical Decision Making - Medical Records Medical records reviewed: No: I reviewed the patient's medical records. - Jayy Inquiry Pt receiving controlled substance: No Vital Signs: 04/20/22 16:49 Temperature 98.1 F Temperature Source Oral Pulse Rate [Left] 93 H Respiratory Rate 18 Blood Pressure [Right Arm] 132/76 Blood Pressure Mean [Right Arm] 94 02 Sat by Pulse Oximetry 98 - Lab Data Lab Results 04/20/22 16:53: Strep Scn Rapid Clinic Negative Orders (Tests/Meds): ORDERS Category Date Time Status Strep Screen Confirmation Stat Micro 04/20/22 16:53 Received Medical Decision Narrative: She was sent to the er due to her shortness of breath after her somewhat recent total knee replacement surgery. [facility] [place] HPI - General Stated complaint: covid test,cough, congestion Time Seen by Provider: 04/20/22 16:55 - History of Present Illness Provider Complaint: She is here with shortness of breath and a nonproductive cough. She had right tka surgery down approx 3 weeks ago. She was at her appt at physical therapy today and she was advised to come to the [facility] to be checked for covid-19 because of her being short of breath. - Related Data Home Medications Medication Instructions Recorded Confirmed dextroamphetamine-amphetamine ER 30 mg PO DAILY 09/29/21 09/29/21 30 mg 24hr capsule,extend release sertraline 100 mg tablet 100 mg PO DAILY 09/29/21 09/29/21 Previous Rx's Medication Instructions Recorded Doxycycline Monohydrate 100 mg PO BID 10 Days #20 cap 11/25/21 clindamycin HCL [Clindamycin HCl] 300 mg PO TID 4 Days #12 cap 12/29/21 Triamcinolone Acetonide 1 applicatio TP TIDP PRN 7 Days #1 03/13/22 gm methylPREDNISolone [Medrol] 4 mg PO DIRECTED 6 Days #21 03/13/22 packet Allergies Allergy/AdvReac Type Severity Reaction Status Date / Time Penicillins Allergy Rash Verified 04/20/22 16:59 [facility] History - Hepatitis A Screen Attestation statement:: This patient has been screened for Hepatitis A risk factors. I have reviewed the patient's past medical history: Yes Medical History: Reports:: Depression, Diabetes Mellitus Type 2 Denies:: Cancer, Diabetes Mellitus Type 1, Hypertension, Internal Pacemaker, MRSA Other Medical History: Reports: Arthritis, Other Laterality Cases: Left: Arthroscopy Knee Other Surgeries: Yes: Cardiac Catheterization, Colonoscopy. No: Pacemaker Amputation: No Fractures: No - Social History Smoking Status: Never smoker Alcohol Intake: current Alcohol Intake Frequency:: a few times a week Substance Use Type: denies use Occupational Status: employed Housing: house Household Members: children - Psychiatric History Pschychiatric History:: Reports:: Depression Family Hx:: Cancer, Diabetes, Stroke ROS Obtained: Yes All systems reviewed & no additional complaints - Constitutional Constitutional: Reports as per HPI - Eyes Eyes: Denies eye discharge - ENT Ears, Nose, Mouth, and Throat: Reports as per HPI - Cardiovascular Cardiovascular: Reports chest pain - Respiratory Respiratory: Reports chest congestion, Reports cough Physical Exam - General General appearance: alert, in no apparent distress - Head Head exam: atraumatic, normocephalic, normal inspection - Eye Eye exam: Present: normal appearance, PERRL, EOMI - ENT ENT exam: Present: normal exam, normal oropharynx, mucous membranes moist, TM's normal bilaterally, normal external ear exam - Neck Neck exam: Present: normal inspection, full ROM, trachea midline. Absent: meningismus, lymphadenopathy - Chest Chest inspection: Present: normal inspection, symmetric chest wall rise. Absent: tenderness - Respiratory Respiratory exam: Present: normal lung so
[2022-04-20 17:36] VITALS: BP 151/85; PULSE 89; O2SAT 99
[2022-04-20 17:37] VITALS: BP 151/85; PULSE 88; RESP 16; TEMP 36.9; O2SAT 98; BMI 43.5
--- NOTE | 2022-04-20 17:44 | ECG_ITS ---
APPROVED REPORT Exam: Resting ECG HR:89 bpm ECG Measurements Heart Rate 89 AXES OH 167 P 57 QRSd 89 QRS 7 QT 360 T 34 QTc 406 Conclusion SINUS RHYTHM Left atrial abnormality Late r wave progression, unchanged since tracing of 2017 BORDERLINE ECG UNCONFIRMED REPORT Electronically signed by : Adan Neff MD 04/22/2022 09:34:03
[2022-04-20 18:06] VITALS: BP 143/74; PULSE 94; O2SAT 99
[2022-04-20 18:19] LABS: Anion Gap 9.3 mEq/L (5-15); Basophils # 0.1 K/mm3 (0-0.2); Basophils % 1.4 % (0.1-2.0); Blood Urea Nitrogen 16 mg/dl (7-17); Calcium 9.3 mg/dl (8.4-10.2); Carbon Dioxide 29 mmol/L (22.0-30.0); Chloride 110 mmol/L (98-107); Creatinine Clearance Estimated 71 mL/min (50-200); Eosinophils # 0.4 K/mm3 (0.0-0.4); Eosinophils % 4.7 % (0.1-12.0); Estimated Glomerular Filt Rate 73 ml/min (>60); GFR (African American) 89 ML/MIN (>60); Glucose 118 mg/dl (74-100); Hematocrit 42.4 % (37.0-47.0); Hemoglobin 13.7 g/dL (12.2-16.2); Lymphocytes # 2.7 K/mm3 (0.7-4.5); Lymphocytes % 34.4 % (10-50); Mean Corpuscular HGB Conc 32.2 g/dL (31.8-35.4); Mean Corpuscular Hemoglobin 29.8 pg (27.0-31.2); Mean Corpuscular Volume 92.5 fl (81-99); Mean Platelet Volume 9.5 fl (7.4-10.4); Monocytes # 0.8 K/mm3 (0.1-1.0); Monocytes % 10.6 % (1.7-9.3); Neutrophils # 3.9 K/mm3 (1.8-7.8); Platelet Count 272 K/mm3 (142-424); Potassium 4.3 mmoL/L (3.5-5.1); Red Blood Count 4.59 M/mm3 (4.20-5.40); Red Cell Distribution Width 13.7 % (11.5-17.5); Sodium 144 mmol/L (136-145)
--- NOTE | 2022-04-20 18:24 | HMH.EDGENADL ---
ED Disposition Condition on Discharge: Good - Critical Care Critical Care Time: No <FeilpeMatthew - Last Filed: 04/20/22 20:10> <German Strange - Last Filed: 04/20/22 20:59> Clinical Impression: Shortness of breath Disposition: Still a Patient Referrals: Provider,Referral, [Primary Care Provider] - Attestation: On 04/20/22, the high probability of a clinically significant, sudden or life threatening deterioration of the following system(s) required my full and direct attention, intervention and personal management. The time I documented below is in addition to time spent performing reported procedures but includes the following listed in this critical care notation. Medical Decision Making - Jayy Inquiry Pt receiving controlled substance: No - Lab Data Result diagrams: 04/20/22 17:49 04/20/22 17:49 - Radiology Data #1 Image(s): Chest Image Reviewed: Yes I have reviewed radiologist's interpretation <FelipeMatthew - Last Filed: 04/20/22 20:10> - Lab Data Result diagrams: 04/20/22 17:49 04/20/22 17:49 <German Strange - Last Filed: 04/20/22 20:59> Vital Signs: 04/20/22 16:49 04/20/22 17:36 04/20/22 17:37 Temperature 98.1 F 98.4 F Temperature Source Oral Oral Pulse Rate 89 Pulse Rate [Left] 93 H 88 Respiratory Rate 18 16 Blood Pressure 151/85 H Blood Pressure [Right Arm] 132/76 151/85 H Blood Pressure Mean 109 Blood Pressure Mean [Right Arm] 94 107 Blood Pressure Source [Right Arm] Automatic Cuff Blood Pressure Position [Right Arm] Sitting 02 Sat by Pulse Oximetry 98 99 98 Oxygen Delivery Method Room Air 04/20/22 18:06 Temperature Temperature Source Pulse Rate 94 H Pulse Rate [Left] Respiratory Rate Blood Pressure 143/74 H Blood Pressure [Right Arm] Blood Pressure Mean 120 Blood Pressure Mean [Right Arm] Blood Pressure Source [Right Arm] Blood Pressure Position [Right Arm] 02 Sat by Pulse Oximetry 99 Oxygen Delivery Method - Lab Data Lab Results 04/20/22 16:34: SARS-CoV-2 (PCR) Not detected, Influenza A Untype (PCR) Not detected, Influenza Type B (PCR) Not detected 04/20/22 16:53: Strep Scn Rapid Clinic Negative 04/20/22 17:49: WBC 8.0, RBC 4.59, Hgb 13.7, Hct 42.4, MCV 92.5, MCH 29.8, MCHC 32.2, RDW 13.7, Plt Count 272, MPV 9.5, Neut % (Auto) 49.0, Lymph % (Auto) 34.4, [place] % (Auto) 10.6 H, Eos % (Auto) 4.7, Baso % (Auto) 1.4, Neut # (Auto) 3.9, Lymph # (Auto) 2.7, [place] # (Auto) 0.8, Eos # (Auto) 0.4, Baso # (Auto) 0.1 04/20/22 17:49: Sodium 144, Potassium 4.3, Chloride 110 H, Carbon Dioxide 29, Anion Gap 9.3, BUN 16, Creatinine 0.80, Estimated Creat Clear 71, Estimated GFR 73, Est GFR ( Amer) 89, Glucose 118 H, Calcium 9.3, Troponin I < 0.01 04/20/22 17:49: D-Dimer 2.50 H 04/20/22 20:02: Troponin I < 0.01 Orders (Tests/Meds): ED MEDICATIONS Generic Name Dose Route Start Last Admin Trade Name Freq PRN Reason Stop Dose Admin Sodium Chloride 10 ml 04/20/22 17:54 Sodium Chloride 0.9% 10ml Flush Syringe IV 05/20/22 17:53 NEEDED PRN Maintain IV Site Discontinued Medications Generic Name Dose Route Start Last Admin Trade Name Freq PRN Reason Stop Dose Admin Iopamidol 70 ml 04/20/22 19:45 04/20/22 19:46 Iopamidol-370 (76%);100ml Bottle IV 04/20/22 19:46 70 ml ONCE ONE Administration Sodium Chloride 40 ml 04/20/22 19:45 04/20/22 19:46 0.9 % Sodium Chloride 50 Ml Vial IV 04/20/22 19:46 40 ml ONCE ONE Administration Sodium Chloride 10 ml 04/20/22 19:45 04/20/22 19:46 Sodium Chloride 0.9% 10ml Syr (Rad Only) IV 04/20/22 19:46 10 ml ONCE ONE Administration ORDERS Category Date Time Status Troponin I Q3H Lab 04/21/22 00:00 Ordered Strep Screen Confirmation Stat Micro 04/20/22 16:53 Received - Radiology Data #1 PROCEDURE INFORMATION: Exam: XR Chest Exam date and time: 04/20/2022 4:44 PM Age: 61 years old Clinical indication:
[2022-04-20 18:33] LABS: Troponin I < 0.01 ng/ml (0.00-0.034)
[2022-04-20 18:34] LABS: Coronavirus 19, PCR Not Detected (NotDetected); Influenza A, PCR Not Detected (NotDetected); Influenza B, PCR Not Detected (NotDetected)
--- NOTE | 2022-04-20 19:10 | CT_ITS ---
PROCEDURE INFORMATION: Exam: CTA Chest With Contrast Exam date and time: 04/20/2022 7:34 PM Age: 61 years old Clinical indication: Patient HX: Shortness of breath, elevated d-dimer; Additional info: SOA, elev d-dimer TECHNIQUE: Imaging protocol: Computed tomographic angiography of the chest with contrast. 3D rendering (Not supervised by radiologist): MIP and/or 3D reconstructed images were created by the technologist. Radiation optimization: All CT scans at this facility use at least one of these dose optimization techniques: automated exposure control; mA and/or kV adjustment per patient size (includes targeted exams where dose is matched to clinical indication); or iterative reconstruction. Contrast material: ISOVUE; Contrast volume: 70 ml; Contrast route: INTRAVENOUS (IV); COMPARISON: CR Chest 04/20/2022 4:44 PM FINDINGS: Pulmonary arteries: Suboptimal contrast bolus for evaluation of pulmonary emboli. Grossly, no pulmonary emboli are identified. Pulmonary arteries otherwise normal. Aorta: Minimal aortic calcific disease. Normal aorta otherwise. Thyroid: Normal thyroid. Lungs: Dependent atelectasis. 18 mm thick rimmed cavity in the right lower lobe with surrounding areas of scarring and atelectasis. Linear scarring in the lingula. Remainder of the lungs clear. Pleural spaces: Normal pleura. Heart: Normal heart size. Normal pericardium. No coronary artery calcifications. Mediastinal space: Normal mediastinum. Lymph nodes: No adenopathy. Diaphragm: Small hiatal hernia. Intraperitoneal space: Unremarkable upper abdomen. Bones/joints: No acute skeletal pathology. Moderate multilevel degenerative changes of the spine, as manifested by multilevel anterior osteophytes and multilevel decrease in intervertebral disc space. Soft tissues: Normal body wall soft tissues. Other findings: Airways patent. IMPRESSION: 1. 18 mm cavitary lesion in the right lower lobe. Considering the presence of surrounding scarring and atelectasis, I suspect that this is of chronic etiology. Nevertheless, I would correlate with any acute respiratory symptoms and would further advise a three-month short-term follow-up to assess for any size or morphological changes. 2. No other acute pulmonary pathology identified. 3. No definitive pulmonary emboli, with the caveat that the contrast bolus was suboptimal for adequate evaluation.
--- NOTE | 2022-04-20 20:00 | PC.NURSE ---
Pt ambulatory to bathroom with use of walker. Warm blanket given. No other needs or complaints at this time.
[2022-04-20 20:52] LABS: Troponin I < 0.01 ng/ml (0.00-0.034)
[2022-04-20 21:05] VITALS: BP 128/75; PULSE 75; RESP 18; TEMP 36.8; O2SAT 99
== END 2022-04-20 21:15 | disposition still patient (30) ==
LOC: UTC 16:27 → ER 17:34
PROVIDERS: Nurse Practitioner Family; Emergency Provider Emergency Medicine
DX: R07.89 Other chest pain (principal); R06.02 Shortness of breath; Z20.822 Contact with and (suspected) exposure to COVID-19; I42.9 Cardiomyopathy, unspecified; E11.9 Type 2 diabetes mellitus without complications; M19.90 Unspecified osteoarthritis, unspecified site; E66.01 Morbid (severe) obesity due to excess calories; F90.9 Attention-deficit hyperactivity disorder, unspecified type; F32.A Depression, unspecified; Z79.52 Long term (current) use of systemic steroids; Z68.41 Body mass index [BMI] 40.0-44.9, adult; Z96.659 Presence of unspecified artificial knee joint; Z82.49 Family history of ischemic heart disease and other diseases of the circulatory system; Z83.3 Family history of diabetes mellitus; Z80.9 Family history of malignant neoplasm, unspecified
CPT/HCPCS: 71046; 71275; 80048; 84484; 85025; 85378; 87880; 93005; 99285; C9803; Q9967; U0003; U0005

== ENCOUNTER 2022-04-21 16:16 | Emergency (ER) | payer BC, OTHER, SELFPAY ==
[2022-04-21 16:25] VITALS: BP 136/89; PULSE 74; RESP 19; TEMP 36.6; O2SAT 97; BMI 53.1
[2022-04-21 16:32] VITALS: BP 136/89; PULSE 74; RESP 19; TEMP 36.6; O2SAT 97
== END 2022-04-21 16:35 | disposition home or self-care (01) ==
LOC: UTC 16:23
PROVIDERS: Emergency Provider Nurse Practitioner
DX: Z48.02 Encounter for removal of sutures (principal)
CPT/HCPCS: 99211; G0463

== ENCOUNTER 2023-02-09 08:30 | Outpatient (RCR) | payer BC, SELFPAY | END 2023-02-09 08:35 | disposition home or self-care (01) | LOC: PT 08:30 | PROVIDERS: PCP Nurse Practitioner Family; Visit Provider Nurse Practitioner Family | DX: M79.604 Pain in right leg (principal) | CPT/HCPCS: 97010; 97014; 97110; 97163; G0283 ==

== ENCOUNTER 2023-02-28 09:01 | Emergency (ER) | payer BC, SELFPAY ==
[2023-02-28 09:10] VITALS: BP 146/89; PULSE 85; RESP 18; TEMP 36.7; O2SAT 98; BMI 44.4
--- NOTE | 2023-02-28 09:22 | EXP.UTC ---
Discharge Plan Disposition Patient Disposition: Home, Self-Care Condition: Good Prescriptions Prescriptions: New methylprednisolone [Medrol (Esau)] 4 mg tablets,dose pack See Rx Instructions .Route .COMPLEX 6 Days Qty: 21 0RF Rx Instructions: taper pack; No Action dextroamphetamine-amphetamine [Adderall XR] 30 mg capsule,extended release 24hr 30 mg PO DAILY metformin 500 mg tablet extended release 24 hr 500 mg PO DAILY Label Comments: TAKE 1 TABLET BY MOUTH IN THE EVENING WITH FOOD duloxetine 30 mg capsule,delayed release(DR/EC) 30 mg PO DAILY Label Comments: TAKE 1 CAPSULE BY MOUTH ONCE DAILY Referrals Follow up/Referrals: Leah Vazquez APRN [Primary Care Provider] - See instructions Activity Restrictions/Add. Instructions Additional Instructions/Restrictions: Start oral Medrol Dose pack tomorrow Oatmeal bathes may help with itching and drying of rash Calamine lotion may help with itching Do not scratch Follow up with your Family Doctor if no improvement or any worsening of symptoms Clinical Impressions Clinical Impression: Contact dermatitis Instructions Patient Instructions: Poisonous Plants: [place], [place], and [place]: Beware the Oils, Poison Jolly, Poison [place], Poison [place], DI for Poison Jolly Allergy Discharge ED Provider: Peyton Espinal [facility] [place] HPI General Stated complaint: rash on both arms Mode of Arrival: Ambulatory Source of Information: Patient Limitations: No Limitations Time Seen by Provider: 02/28/23 09:22 Description of Symptoms (Recalled from Triage Doc. by RN): PATIENT C/O RASH ALL OVER X 3 DAYS HEENT Symptoms (Recalled from RN notes): No Resp Symptoms (Recalled from RN notes): No Skin Symptoms (Recalled from RN notes): Yes MS Symptoms (Recalled from RN notes): No Functional Status (Recalled from RN notes): WNL History of Present Illness Provider Complaint: Patient states that she is highly allergic to poison jolly and she was in it last week and started breaking out on her arms last week and it has continued to spread and get worse States that she feels it starting on her sides, lower extremities and worried it may start on her face so she came in Related Data Home Medications Medication Instructions Recorded Confirmed dextroamphetamine-amphetamine ER 30 mg PO DAILY ADHD 09/29/21 02/28/23 30 mg 24hr capsule,extend release (Adderall XR) duloxetine 30 mg capsule,delayed 30 mg PO DAILY . 02/28/23 02/28/23 release metformin 500 mg tablet,extended 500 mg PO DAILY . 02/28/23 02/28/23 release 24 hr Previous Rx's Medication Instructions Recorded methylprednisolone 4 mg tablets in See Rx Instructions .Route 02/28/23 a dose pack (Medrol (Esau)) .COMPLEX 6 days #21 tabs Allergies Allergy/AdvReac Type Severity Reaction Status Date / Time Penicillins Allergy Rash Verified 04/20/22 16:59 Worker's Comp Is this a Worker's Comp case?: No PFSH [facility] Disclaimer: The information contained in this section may have been updated after the patient was seen, as this information can be updated by other users. Medical History (Updated 02/28/23 @ 09:30 by Peyton Espinal APRN) Attention deficit hyperactivity disorder (ADHD) Morbid obesity due to excess calories PATRICIO (obstructive sleep apnea) Urinary tract infection Surgical History (Updated 02/28/23 @ 09:20 by Yessenia Curtis RN) History of shoulder surgery Total knee replacement status Social History Smoking Status: Never smoker second hand exposure: No alcohol intake: current substance use type: denies use current occupational status: employed Travel in the last 8 weeks: None household members: children housing: house current occupational exposures/hazards: No caffeine: Yes ROS Obtained: Yes All systems reviewed & no additional complaints except as documented and Yes Systems reviewed as appropriate & no additional complaints except as documented Con
[2023-02-28 09:23] VITALS: BP 146/89; PULSE 85; RESP 18; TEMP 36.7; O2SAT 98
== END 2023-02-28 09:48 | disposition home or self-care (01) ==
PROVIDERS: Emergency Provider Nurse Practitioner; PCP Nurse Practitioner Family
DX: L23.7 Allergic contact dermatitis due to plants, except food (principal); F90.9 Attention-deficit hyperactivity disorder, unspecified type; E66.01 Morbid (severe) obesity due to excess calories; G47.33 Obstructive sleep apnea (adult) (pediatric)
CPT/HCPCS: 96372; 99212; 99214; 99282; G0463

== ENCOUNTER 2023-06-20 08:13 | Emergency (ER) | payer BC, SELFPAY ==
[2023-06-20 08:25] VITALS: BP 138/87; PULSE 92; RESP 22; TEMP 36.8; O2SAT 95; BMI 44.4
--- NOTE | 2023-06-20 08:38 | EXP.UTC ---
Discharge Plan Disposition Patient Disposition: Home, Self-Care Condition: Good Prescriptions Prescriptions: New fluticasone propionate [Flonase Allergy Relief] 50 mcg/actuation spray,suspension 1 - 2 spray intranasal DAILY Qty: 16 0RF Rx Instructions: administer into each nostril daily benzonatate 100 mg capsule 100 mg PO TID PRN (Reason: cough) Qty: 30 0RF methylprednisolone [Medrol (Esau)] 4 mg tablets,dose pack See Rx Instructions .Route .COMPLEX 6 Days Qty: 21 0RF Rx Instructions: taper pack; guaifenesin [Mucinex] 600 mg tablet extended release 12hr 600 - 1,200 mg PO BID PRN (Reason: cough/congestion) Qty: 20 0RF azithromycin [Zithromax Z-Esau] 250 mg tablet See Rx Instructions .ROUTE .COMPLEX 5 Days Qty: 6 0RF Rx Instructions: For 250 mg dose pack: take 500 mg today (day 1), then 250 mg for 4 days (days 2-5) No Action dextroamphetamine-amphetamine [Adderall XR] 30 mg capsule,extended release 24hr 30 mg PO DAILY Referrals Follow up/Referrals: Alexandro Cordero [Primary Care Provider] - See instructions Activity Restrictions/Add. Instructions Additional Instructions/Restrictions: Start antibiotic today. Be sure to complete entire prescription even if feeling better Monitor temp. Tylenol every 4 hours as needed and / or ibuprofen every 6 hours as needed ( As long as your primary care physician has told you that it ok to take both. For fever/aches/pains ER if no less than 101 despite Tylenol or Motrin Humidifier/vaporizer or hot steamy shower Inhaler every 4-6 hours as needed like we discussed. If unsure how to use it, ask pharmacist to demonstrate how. Should help open airways and improve cough, wheezing, and shortness of breath Mucinex during the day for your cough and cough suppressant only at night. Be sure to drink lots of water. I *Tessalon Perles will not cause drowsiness but use at bedtime to help stop cough so that you may get some rest. *Start steroid today. Helps with inflammation therefore, cough and wheezing. Follow directions on the package. Reviewed side effects. Patient reports taking them before. Follow up IMMEDIATELY for new or worsening of symptoms OR no noticeable improvement over the next 48-72 hours. 911 immediately for any life threatening symptoms such as chest pain or difficulty breathing Clinical Impressions Clinical Impression: Bronchitis Sinusitis Qualifiers: Sinusitis location: unspecified location Chronicity: unspecified Qualified Code(s): J32.9 - Chronic sinusitis, unspecified Instructions Patient Instructions: Sinusitis, Acute Bronchitis, DI for Sinusitis Discharge ED Provider: Peyton Espinal [facility] [place] HPI General Stated complaint: sore throat,lost voice,cough Mode of Arrival: Ambulatory Source of Information: Patient Limitations: No Limitations Time Seen by Provider: 06/20/23 08:42 Description of Symptoms (Recalled from Triage Doc. by RN): PATIENT C/O PERSISTANT COUGH X 8 WEEKS, SOME SOA, AND SINUS DRAINAGE HEENT Symptoms (Recalled from RN notes): Yes Resp Symptoms (Recalled from RN notes): Yes Skin Symptoms (Recalled from RN notes): No MS Symptoms (Recalled from RN notes): No Functional Status (Recalled from RN notes): WNL History of Present Illness Provider Complaint: Patient states that she has had a persistent cough since she had COVID about 8weeks ago States that for the last several weeks she has been having sinus congestion, pressure and drainage in the back of her throat and feels like it is trying to move into her her chest States that she isnt coughing anything up but feels like it has her throat scratchy, irritated and making her loose her voice Related Data Home Medications Medication Instructions Recorded Confirmed dextroamphetamine-amphetamine ER 30 mg PO DAILY ADHD 09/29/21 06/20/23 30 mg 24hr capsule,extend release (Adderall XR) Previous Rx's Medication Inst
[2023-06-20 08:51] VITALS: BP 138/87; PULSE 92; RESP 22; TEMP 36.8; O2SAT 95
== END 2023-06-20 08:52 | disposition home or self-care (01) ==
PROVIDERS: Emergency Provider Nurse Practitioner
DX: J20.9 Acute bronchitis, unspecified (principal); E66.01 Morbid (severe) obesity due to excess calories; G47.33 Obstructive sleep apnea (adult) (pediatric); F90.9 Attention-deficit hyperactivity disorder, unspecified type
CPT/HCPCS: 99212; 99214; G0463

== ENCOUNTER → 2023-08-16 08:58 | Outpatient (CLI) | payer BC, SELFPAY ==
[2023-08-16 19:45] LABS: Basophils % 0.3 % (0.1-2.0); Eosinophils # 0.2 K/mm3 (0.0-0.4); Eosinophils % 2.7 % (0.1-12.0); Hematocrit 43.4 % (37.0-47.0); Hemoglobin 14.6 g/dL (12.2-16.2); Lymphocytes % 34.3 % (10-50); Mean Corpuscular HGB Conc 33.7 g/dL (31.8-35.4); Mean Corpuscular Hemoglobin 30.6 pg (27.0-31.2); Mean Corpuscular Volume 90.8 fl (81-99); Mean Platelet Volume 9.9 fl (7.4-10.4); Monocytes # 0.7 K/mm3 (0.1-1.0); Neutrophils # 4.8 K/mm3 (1.8-7.8); Neutrophils % 54.6 % (37.0-80.0); Platelet Count 184 K/mm3 (142-424); Red Blood Count 4.78 M/mm3 (4.20-5.40); Red Cell Distribution Width 13.5 % (11.5-17.5); White Blood Count 8.7 K/mm3 (4.8-10.8)
== END ==
PROVIDERS: PCP Student in an Organized Health Care Education/Training Program; Visit Provider Student in an Organized Health Care Education/Training Program
DX: D72.829 Elevated white blood cell count, unspecified (principal); N39.0 Urinary tract infection, site not specified
CPT/HCPCS: 85025; 87086

== ENCOUNTER 2023-10-26 08:19 | Emergency (ER) | payer BC, SELFPAY ==
--- NOTE | 2023-10-26 08:23 | EXP.UTC ---
Discharge Plan Disposition Patient Disposition: Home, Self-Care Condition: Good Prescriptions Prescriptions: New levofloxacin 500 mg tablet 500 mg PO DAILY Qty: 7 0RF No Action dextroamphetamine-amphetamine [Adderall XR] 30 mg capsule,extended release 24hr 30 mg PO DAILY fluticasone propionate [Flonase Allergy Relief] 50 mcg/actuation spray,suspension 1 - 2 spray intranasal DAILY Qty: 16 0RF Rx Instructions: administer into each nostril daily Referrals Follow up/Referrals: Provider,Referral, MD [Primary Care Provider] - See instructions Activity Restrictions/Add. Instructions Additional Instructions/Restrictions: Your urine culture is pending. This should be back in about 72 hours. This will confirm you are on the appropriate antibiotic. You had sugar in your urine. Please schedule follow up with [facility] for additional testing. Clinical Impressions Clinical Impression: UTI (urinary tract infection), Glycosuria, Hyperglycemia Instructions Patient Instructions: DI for Urinary Tract Infection (UTI) Discharge ED Provider[place] Aliyah Grace [facility] [place] General Stated complaint: frequent urination abd pain back pain Time Seen by Provider: 10/26/23 09:17 History of Present Illness Provider Complaint: Urinary frequency, low back pain, right flank pain. Has had mild symptoms X 1 week but worse last night. No nausea, vomiting. No fever. Onset (ago): week(s) (1) Location: pelvis Quality: burning Relieving factors: none Exacerbating factors: none Associated symptoms: denies other symptoms Treatments prior to arrival: none Related Data Home Medications Medication Instructions Recorded Confirmed dextroamphetamine-amphetamine ER 30 mg PO DAILY ADHD 09/29/21 10/26/23 30 mg 24hr capsule,extend release (Adderall XR) Previous Rx's Medication Instructions Recorded fluticasone propionate 50 1 - 2 spray intranasal DAILY #16 06/20/23 mcg/actuation nasal grams spray,suspension (Flonase Allergy Relief) levofloxacin 500 mg tablet 500 mg PO DAILY #7 tabs 10/26/23 Allergies Allergy/AdvReac Type Severity Reaction Status Date / Time Penicillins Allergy Rash Verified 10/26/23 09:21 [facility] Disclaimer: The information contained in this section may have been updated after the patient was seen, as this information can be updated by other users. Medical History (Updated 10/26/23 @ 09:28 by CLAYTON Barrett) Attention deficit hyperactivity disorder (ADHD) Morbid obesity due to excess calories PATRICIO (obstructive sleep apnea) Urinary tract infection Surgical History History of shoulder surgery Total knee replacement status Social History Smoking Status: Never smoker second hand exposure: No alcohol intake: current substance use type: denies use current occupational status: employed Travel in the last 8 weeks: None household members: children housing: house current occupational exposures/hazards: No caffeine: Yes ROS Obtained: Yes All systems reviewed & no additional complaints except as documented Genitourinary Female Genitourinary: Reports dysuria and Reports flank pain Physical Exam General General appearance: alert and in no apparent distress Head Head exam: atraumatic, normocephalic and normal inspection Eye Eye exam: Present normal appearance, PERRL and EOMI ENT ENT exam: Present normal exam, normal oropharynx, mucous membranes moist, TM's normal bilaterally and normal external ear exam Neck Neck exam: Present normal inspection, full ROM and trachea midline; Absent meningismus or lymphadenopathy Chest Chest inspection: Present normal inspection and symmetric chest wall rise; Absent tenderness Respiratory Respiratory exam: Present normal lung sounds bilaterally; Absent respiratory distress Cardiovascular Cardiovascular exam: Present regular rate and normal rhythm; Absent JVD Abdominal Exam Abdominal exam: Present soft and normal bowel sounds; Absent distention, tenderness or guarding Extremities Exam Extremities exam: Present normal inspection, full ROM and normal capillary refill; Absent calf tenderness Back Exam Back exam: Present normal inspection and CVA tenderness (R) Neurological Exam Neurological exam: Present alert and oriented X3 Psychiatric Psychiatric exam: Present normal affect and normal mood Skin Skin exam: Present warm, dry, intact and normal color Lymphatic Lymphatic Findings: no adenopathy Medical Decision Making Jayy Inquiry Pt receiving controlled substance: No Lab Data Lab results reviewed: Yes I reviewed the patient's lab results. Medical Decision Narrative: [facility] She was previously on Metformin. It upset her stomach. [facility], they told her that her HgA1c was ok and to stop taking it, but hasn't had f/u since. Does not have a local PCP. FSBS 303 this morning.
[2023-10-26 08:50] VITALS: BP 167/85; PULSE 94; RESP 16; TEMP 36.6; O2SAT 97; BMI 45.1
[2023-10-26 09:22] LABS: Apearance,Urine Clear (Clear); Bilirubin,Urine Negative (Negative); Blood, Urine Negative (Negative); Color,Urine Yellow (Yellow); Glucose,Urine (UA) 2+ (Negative); Ketones,Urine Negative (Negative); PH,Urine 5.5 (5.0-8.5); Protein,Urine Negative (Negative); Specific Gravity, Urine 1.025 (1.005-1.030); UTC Leukocyte Esterase,Urine Negative (Negative); Urobilinogen,Urine 0.2 EU/dl (0.2)
[2023-10-26 09:23] LABS: UTC Nitrate,Urine Negative (Negative)
[2023-10-26 09:33] LABS: POC Glucose,Bedside 303 (70-110)
[2023-10-26 09:41] VITALS: BP 167/85; PULSE 94; RESP 16; TEMP 36.6; O2SAT 97
== END 2023-10-26 09:41 | disposition home or self-care (01) ==
PROVIDERS: Emergency Provider Physician Assistant
DX: N39.0 Urinary tract infection, site not specified (principal); M54.59 Other low back pain; R81 Glycosuria; R73.9 Hyperglycemia, unspecified
CPT/HCPCS: 81003; 82962; 87086; 99212; 99214; G0463

== ENCOUNTER 2024-01-18 11:51 | Emergency (ER) | payer BC, SELFPAY ==
[2024-01-18 12:50] VITALS: BP 133/86; PULSE 87; RESP 21; TEMP 36.9; O2SAT 97; BMI 43.5
--- NOTE | 2024-01-18 13:39 | ED_ITS ---
Discharge Plan Disposition Patient Disposition: Home, Self-Care Condition: Good Prescriptions Prescriptions: New pseudoephedrine HCl [Sudogest] 60 mg tablet 60 mg PO Q8HP PRN (Reason: nasal congestion) Qty: 10 0RF benzonatate 100 mg capsule 100 mg PO TID PRN (Reason: cough) Qty: 30 0RF No Action latanoprost 0.005 % drops 1 drp ophthalmic (eye) HS Patient Comments: INSTILL 1 DROP INTO EACH EYE AT BEDTIME cetirizine 10 mg Tablet 10 mg PO DAILY glimepiride 2 mg Tablet 2 mg PO DAILY albuterol sulfate 90 mcg/actuation Hfa Aerosol Inhaler 2 puff INHALATION Q6H PRN (Reason: SOA) dextroamphetamine-amphetamine 30 mg capsule,extended release 24hr 30 mg PO DAILY fluticasone propionate [Flonase] 50 mcg/actuation [place],Suspension 2 spray INTRANASAL DAILY Rx Instructions: administer into each nostril guaifenesin [Mucinex] 600 mg Tablet Extended Release 12hr 600 mg PO Q12H Referrals Follow up/Referrals: Provider,Referral, [Primary Care Provider] - See instructions Hero Beaver [Referring] - See instructions Activity Restrictions/Add. Instructions Additional Instructions/Restrictions: Recommend exam by [facility] to help you with your allergies FOllow up with your Family Doctor if no improvement any signs of infection Take medication as prescribed Cool mist humidifier and/or Vaporizer may help with nasal congestion Straight to ER if any life threatening symptoms Clinical Impressions Clinical Impression: Allergic rhinitis Stand Alone Forms Stand Alone Forms: Work/School Release Instructions Patient Instructions: Allergic Rhinitis, DI for Allergic Rhinitis Discharge ED Provider: Peyton Espinal [facility] General Stated complaint: allergies Mode of Arrival: Ambulatory Source of Information: Patient Limitations: No Limitations Time Seen by Provider: 01/18/24 13:39 Description of Symptoms (Recalled from Triage Doc. by RN): PATIENT C/O ALLERGIES X 2 WEEKS HEENT Symptoms (Recalled from RN notes): Yes Resp Symptoms (Recalled from RN notes): No Skin Symptoms (Recalled from RN notes): No MS Symptoms (Recalled from RN notes): No Functional Status (Recalled from RN notes): WNL History of Present Illness Provider Complaint: Patient states her allergies has been acting up for about 2 weeks and she is having nasal congestion and sneezing States today they was still bothering her and she is on allergy medication but not helping much and wasnt sure what else she can take where she recently started medication for diabetes Related Data Home Medications Medication Instructions Recorded Confirmed albuterol sulfate 90 mcg/actuation 2 puff inhalation Q6H PRN SOA 01/18/24 01/18/24 aerosol inhaler cetirizine 10 mg tablet 10 mg PO DAILY 01/18/24 01/18/24 dextroamphetamine-amphetamine ER 30 mg PO DAILY 01/18/24 01/18/24 30 mg 24hr capsule,extend release fluticasone propionate 50 2 spray intranasal DAILY 01/18/24 01/18/24 mcg/actuation nasal spray,suspension glimepiride 2 mg tablet 2 mg PO DAILY 01/18/24 01/18/24 guaifenesin 600 mg tablet, 600 mg PO Q12H 01/18/24 01/18/24 extended release 12 hr (Mucinex) latanoprost 0.005 % eye drops 1 drp ophthalmic (eye) HS 01/18/24 01/18/24 Previous Rx's Medication Instructions Recorded benzonatate 100 mg capsule 100 mg PO TID PRN cough #30 caps 01/18/24 pseudoephedrine HCl 60 mg tablet 60 mg PO Q8HP PRN nasal congestion 01/18/24 (Sudogest) #10 tabs Allergies Allergy/AdvReac Type Severity Reaction Status Date / Time Penicillins Allergy Rash Verified 10/30/23 08:58 Worker's Comp Is this a Worker's Comp case?: No [facility] Disclaimer: The information contained in this section may have been updated after the patient was seen, as this information can be updated by other users. Medical History (Updated 01/18/24 @ 13:59 by Peyton Espinal APRN) Urinary tract infection PATRICIO (obstructive sleep apnea) Attention deficit hyperactivity disorder (ADHD) Morbid obesity due to excess calories Surgical History History of shoulder surgery Total knee replacement status Social History Smoking Status: Never smoker second hand exposure: No alcohol intake: current alcohol intake frequency: a few times a week substance use type: denies use current occupational status: employed Travel in the last 8 weeks: None household members: children housing: house current occupational exposures/hazards: No caffeine: Yes ROS Obtained: Yes All systems reviewed & no additional complaints except as documented and Yes Systems reviewed as appropriate & no additional complaints except as documented Constitutional Constitutional: Reports system reviewed and no additional complaints, except as documented, Reports as per HPI, Denies body ache, Denies chills, Denies fever(s) and Denies headache(s) ENT Ears, Nose, Mouth, and Throat: Reports system reviewed and no additional complaints, except as documented, Reports as per HPI, Denies otalgia, Denies headache(s), Reports nasal congestion, Reports nasal discharge, Denies sore throat and Reports other (runny nose and sneezing) Cardiovascular Cardiovascular: Reports system reviewed and no additional complaints, except as documented and Reports as per HPI Respiratory Respiratory: Reports system reviewed and no additional complaints, except as documented and Reports as per HPI Gastrointestinal Gastrointestingal: Reports system reviewed and no additional complaints, except as documented and as per HPI Neurologic Neurologic: Denies headache(s) Physical Exam General General appearance: alert and in no apparent distress ENT ENT exam: Present mucous membranes moist Expanded ENT Exam Nose exam: Present other (reports clear drainage) Respiratory Respiratory exam: Present normal lung sounds bilaterally; Absent respiratory distress or wheezes Cardiovascular Cardiovascular exam: Present regular rate, normal rhythm and normal heart sounds Neurological Exam Neurological exam: Present alert, oriented X3 and normal gait Medical Decision Making Jayy Inquiry Pt receiving controlled substance: No Jayy was queried for this patient: No Vital Signs: 01/18/24 12:50 Temperature 98.4 F Temperature Source Oral Pulse Rate [Left Brachial] 87 Respiratory Rate 21 Blood Pressure [Left Arm] 133/86 Blood Pressure Mean [Left Arm] 101 Blood Pressure Source [Left Arm] Automatic Cuff Blood Pressure Position [Left Arm] Sitting 02 Sat by Pulse Oximetry 97 Oxygen Delivery Method Room Air Medical Decision Narrative: Medication discussed with pharmacy
[2024-01-18 14:02] VITALS: BP 133/86; PULSE 87; RESP 21; TEMP 36.9; O2SAT 97
== END 2024-01-18 14:04 | disposition home or self-care (01) ==
PROVIDERS: Emergency Provider Nurse Practitioner
DX: J30.2 Other seasonal allergic rhinitis (principal); R09.81 Nasal congestion; E11.9 Type 2 diabetes mellitus without complications; Z79.84 Long term (current) use of oral hypoglycemic drugs
CPT/HCPCS: 99212; 99214; G0463

== ENCOUNTER 2024-07-09 16:48 | Outpatient (CLI) | payer BC, SELFPAY ==
--- NOTE | 2024-07-09 16:58 | MM_ITS ---
PROCEDURE INFORMATION: Exam: MG Bilateral Screening 3D Mammography Exam date and time: 07/09/2024 4:42 PM Age: 63 years old Clinical indication: Screening examination TECHNIQUE: Imaging protocol: Bilateral Screening tomosynthesis and 2D mammography including computer-aided detection (CAD) when performed. COMPARISON: 1. MG MM DIG SCREENING MAMM BI W/CAD 02/11/2020 10:25 AM 2. MG SCBI MM Dig screening mamm BI w/CAD 05/01/2018 10:04 AM FINDINGS: MAMMOGRAPHY: Breast composition: The breasts are almost entirely fatty. Mass: None. Architectural distortion: None. Calcifications: No suspicious calcifications. Asymmetric density: None. Skin thickening: None. Axillary adenopathy: None. IMPRESSION: No mammographic evidence of malignancy. Annual screening is recommended unless otherwise clinically indicated. ASSESSMENT: BI-RADS Category 1: Negative.
== END 2024-07-09 23:59 | disposition home or self-care (01) ==
LOC: RAD 16:50
PROVIDERS: PCP Family Medicine; Visit Provider Family Medicine
DX: Z12.31 Encounter for screening mammogram for malignant neoplasm of breast (principal)
CPT/HCPCS: 77063; 77067

== ENCOUNTER 2024-12-01 14:51 | Outpatient (CLI) | payer BC, SELFPAY ==
[2024-12-05 10:44] LABS: Chlamydia trachomatis Negative (Negative); Neisseria gonorrhoeae Negative (Negative); Trichomonas vaginalis Negative (Negative)
== END 2024-12-01 23:59 | disposition home or self-care (01) ==
LOC: LAB.DROPOF 12-02 13:34
PROVIDERS: PCP Student in an Organized Health Care Education/Training Program; Visit Provider Student in an Organized Health Care Education/Training Program
DX: N39.0 Urinary tract infection, site not specified (principal); R39.9 Unspecified symptoms and signs involving the genitourinary system
CPT/HCPCS: 87086; 87491; 87591; 87661

== ENCOUNTER 2025-01-13 08:56 | Outpatient (CLI) | payer BC, SELFPAY | END 2025-01-13 23:59 | disposition home or self-care (01) | LOC: LAB.DROPOF 01-14 13:20 | PROVIDERS: PCP Student in an Organized Health Care Education/Training Program; Visit Provider Student in an Organized Health Care Education/Training Program | DX: N39.0 Urinary tract infection, site not specified (principal) | CPT/HCPCS: 87086 ==

== ENCOUNTER 2025-09-08 10:05 | Outpatient (CLI) | payer BC, SELFPAY ==
[2025-09-08 21:45] LABS: Hepatitis C Ab Qual. W/ RFX NEGATIVE (Negative)
[2025-09-09 22:14] LABS: RPR W/RFX Titers Nonreactive (Nonreactive)
[2025-09-10 05:12] LABS: Hepatitis B Surface Antigen Negative (Negative)
--- OUTSIDE RECORDS SUMMARY | 2025-09-11 10:07 | XMS_ITS | Encounter Summary ---
Author Organization [employer] ([place], [place], [place], [place], [place]) Address [address] [place] [address] Care Team Providers Care Lye Boiler Name Role Phone [facility], Provider Not In The System MD Primary Care Provider Unavailable Encounter Details Date Type Department Care Team (Late st Contact Info) Description 11/01/2023 Lab Requisition [facility] [address] [place] [address] Richmond Lyons MD [address] [facility] [address] [place] [address] Presence of left artificial shoulder joint Social History Tobacco Use Types Packs/Day Years Used Date Smoking Tobacco: Never Assessed Food Insecurity Answer Date Recorded Food run out past 12 months Not on file 09/17 Food did not last past 12 months Not on file 10/05/2023 Employment Answer Date Recorded Help finding and keeping a job Not on file 0 10/05/2023 Family and Community Support Answer Fer e Recorded Help with Day to Day Activities Not on file 10/05/2023 Feeling Lonely or Isolated Not on file 10/05 Educational Attainment Answer Date Carlos rded Speak language other than Bangladeshi at home Not on file 10/05/2023 Want help with school or training Not on file 10/05/2023 Substance Use Answer Date Recorded Used prescription meds for non-medical reasons N ot on file 10/05/2023 Used illegal drugs past 12 months Not on file 10/05/2023 Comments Unknown Sex and Gender Information Value Date Recorded Sex Assigned at Not on file Legal Sex Female 6:22 PM CDT Gender Identity Not on file Sexual Orientation Not on file documented as of this encounter Plan of Treatment Not on file documented as of this encounter Procedures Procedure Name Priority Date/Time Associated Diagnosis Comments [facility] DIFFERENTIAL, BODY FLUID Routine 11/01/2023 10:11 AM EST Presence of left artificial shoulder joint FUNGUS CULTURE W/LUIS OR ROSANGELA INK Routine 11/01/2023 10:11 AM EST Presence of left artificial shoulder joint ANAEROBIC CULTURE, EXTENDED (P.ACNES) Routine 11/01/2023 10:11 AM EST Presence of left artificial shoulder joint BODY FLUID CULTURE + GRAM STAIN Routine 11/01/2023 10:11 AM EST Presence of left artificial shoulder joint BODY FLUID CELL COUNT WITH DIFFERENTIAL Routine 11/01/2023 10:11 AM EST Presence of left artificial shoulder joint documented in this encounter Results * DIFFERENTIAL, BODY FLUID (11/01/2023 10:11 AM EST) Neutrophils Fluid 22 0 - 25 % 11/01/2023 8:15 PM EST [facility] Lymphocytes Fluid 25 % 11/01/2023 8:15 PM EST [facility] Monocytes Fluid 32 0 - 65 % 8:15 PM EST [facility] Mesothelial, Fluid 21 % 11/01/2023 8:15 PM EST [facility] Comment:Lining Cells Synovial Fluid STRUCTURE OF LEFT SHOULDER REGION / Unknown 11/01/2023 10:11 AM EST 11/01/2023 8:13 PM EST us Richmond Lyons MD BODY FLUIDS AND STOOLS ORDERABLE S Final Result [facility] [place] [address], [facility] [phone] * Fungus Culture W/LUIS Or Rosangela Ink (11/01/2023 10:11 AM EST) Result No fungus isolated at 6 weeks. 12/13/2023 10:01 PM EDT [facility] LUIS Prep No fungal elements seen 12/13/2023 10:01 PM EDT [facility] Synovial Fluid STRUCTURE OF LEFT SHOULDER REGION / Unknown 11/01/2023 10:11 AM EST 11/01/2023 8:13 PM EST us Richmond Lyons MD MICROBIOLOGY - GENERAL ORDERABLE S Final Result Performing Organization Address [facility] Co de Phone Number [facility] [address] [phone] * (ABNORMAL) Body fluid cell count with differential (11/01/2023 10:11 AM EST) Appearance Hazy(A) Clear 11/01/2023 8:15 PM EST [facility] Color Yellow 11/01/2023 8:15 PM EST [facility] BODY FLUID TYPE Synovial 8:15 PM EST [facility] Auto WBC/Nucleated Cells BF 2,997 /uL 11/01/2023 8:15 PM EST [facility] Comment: Please refer to specific WBC/Nucleated Cell Count Body Fluid reference ranges below: For Pleural: 0-1000 Peritoneal: 0-1000 Pericardial:0-1000 Synovial: 0-200 Auto RBC BF 40,000 /uL 11/01/2023 8:15 PM EST [facility] Comment: Please refer to specific RBC Cell Count Body Fluid reference ranges below: Pleural: 0-10,000 Peritoneal: 0-10,000 Pericardial:0-10,000 Synovial:0-30 Synovial Fluid STRUCTURE OF LEFT SHOULDER REGION / Unknown 11/01/2023 10:11 AM EST 11/01/2023 8:13 PM EST Narrative [facility] - 11/01/2023 8:15 PM EST There is normally no readily obtainable pleural, peritoneal and pericardial fluid, hence normal elements for these potential fluids are not defined. us Richmond Lyons MD BODY FLUIDS AND STOOLS ORDERABLE S Final Result Performing Organization Address City/[facility]/ZIP Co de Phone Number [facility] [address] [phone] * Body Fluid Culture + Gram Stain (11/01/2023 10:11 AM EST) Result No growth 11/05/2023 7:35 AM EST [facility] Gram Stain Result No organisms seen 11/05/2023 7:35 AM EST [facility] Gram Stain Result No cells seen 11/05/2023 7:35 AM EST [facility] Synovial Fluid STRUCTURE OF LEFT SHOULDER REGION / Unknown 11/01/2023 10:11 AM EST 11/01/2023 8:13 PM EST us Richmond Lyons MD MICROBIOLOGY - GENERAL ORDERABLE S Final Result [facility] [address] [phone] * Anaerobic Culture, Extended (P.acnes) (11/01/2023 10:11 AM EST) Result No anaerobic growth at 14 days. No Cutibacterium acnes (formerly Propionibacterium acnes) isolated 11/16/2023 9:09 AM EST [facility] Synovial Fluid STRUCTURE OF LEFT SHOULDER REGION / Unknown 11/01/2023 10:11 AM EST 11/01/2023 8:13 PM EST us Richmond Lyons MD MICROBIOLOGY - GENERAL ORDERABLE S Final Result [facility] [address] [phone] documented in this encounter Visit Diagnoses Diagnosis Presence of left artificial shoulder joint documented in this encounter Care Teams Lye Boiler Relationship Specialty Start Date End Date [facility], Provider Not In The System, [place] [address] PCP - General 12/28/22 documented as of this encounter
--- OUTSIDE RECORDS SUMMARY | 2025-09-11 10:07 | XMS_ITS | Clinical Summary ---
Author Organization [employer] ([place], [place], [place], [place], [place]) Address [address] [place] [address] Care Team Providers Care Tensioning Machine Operator Name Role Phone [facility], Provider Not In The System MD Primary Care Provider Unavailable Social History Tobacco Use Types Packs/Day Years [...] Date Carlos rded Speak language other than [place] Islander at home Not on file 10/05/2023 Want [...] on file Sexual Orientation Not on file Plan of Treatment Health Maintenance Due Date Last Done Comments CT Colonography 1962 Colonoscopy 1962 Colorectal Cancer Screening 1962 FOBT/FIT 1962 Fit-DNA (Cologuard) 1962 Sigmoidoscopy 1962 Depression Screening (12+) 1974 Tobacco Cessation Counseling and Screening (12+) 1974 HIV Screening 1977 Hepatitis C Screening 1980 Pap Smear 1983 Breast Cancer Screening 2002 Lipid Panel 2007 Pneumococcal 50+ years (1 of 1 - PCV) 2012 Shingles Vaccine (Zoster) (1 of 2) 2012 DTAP/TDAP/TD VACCINES (4 - T d or Tdap) 04/06/2025 04/06/2015, 04/06/2015, 11/15/2012 COVID-19 VACCINE ( - 2024- season) 2025 08/03/2021, 11/10/2020, 10/06/2020 Influenza Vaccine (#1) 2025 06/22/2020, 2017 Respiratory Syncytial Virus (RSV) Adult or (1 - 1-dose 75+ series) 2037 Insurance BLUE CROSS/BLUE SHIELD Care Teams Tensioning Machine Operator Relationship Specialty Start Date End Date [facility], Provider Not In The System, [place] [address] PCP - General 12/28/22
--- OUTSIDE RECORDS SUMMARY | 2025-09-11 10:07 | XMS_ITS | Referral Summary ---
Author Organization [employer] ([place], [place], [place], [place], [place]) Address [address] [place] [address] Care Team Providers Care Accounting Officer Name Role Phone [facility], Provider Not In The System MD [...] Date Carlos rded Speak language other than Malaysian at home Not on file 10/05/2023 Want [...] Orientation Not on file Plan of Treatment Not on file Insurance BLUE CROSS/BLUE SHIELD Care Teams Accounting Officer Relationship Specialty Start Date End Date [facility], Provider Not In The System, [place] [address] PCP - General 12/28/22
[2025-09-12 08:17] LABS: HSV-1 DNA Negative (Negative); HSV-2 DNA Negative (Negative)
== END 2025-09-08 23:59 | disposition home or self-care (01) ==
LOC: LAB.DROPOF 09-11 10:05
PROVIDERS: PCP Nurse Practitioner Family; Visit Provider Student in an Organized Health Care Education/Training Program
DX: R21 Rash and other nonspecific skin eruption (principal)
CPT/HCPCS: 86592; 86803; 87086; 87340; 87389; 87491; 87529; 87591; 87661